=== PATIENT | female | born 1970 | race Caucasian/White ===

== ENCOUNTER → 2019-06-13 | Outpatient (CLI) | payer OTHER ==
[2019-06-13 13:26] LABS: BASO % 1.1 % (0.0-1.0); EOS % 1.1 % (0.0-3.0); HEMATOCRIT 34.4 % (36.0-47.0); HEMOGLOBIN 10.5 g/dl (12.0-15.5); LYMPH # 0.9 10^3/uL (1.5-4.5); LYMPH % 25.1 % (24.0-44.0); MEAN CORPUSCULAR HEMOGLOBIN 24.7 pg (27.0-33.0); MEAN CORPUSCULAR HGB CONC 30.5 g/dl (32.0-36.5); MEAN CORPUSCULAR VOLUME 80.9 fl (80.0-96.0); MONO # 0.5 10^3/uL (0.0-0.8); MONO % 14.5 % (0.0-5.0); NEUTROPHILS # 2.1 10^3/uL (1.8-7.7); NEUTROPHILS % 58.2 % (36.0-66.0); PLATELET COUNT, AUTOMATED 244 10^3/uL (150-450); RED BLOOD COUNT 4.25 10^6/uL (4.00-5.40); WHITE BLOOD COUNT 3.7 10^3/uL (4.0-10.0)
[2019-06-13 13:36] LABS: FREE T4 1.01 NG/DL (0.76-1.46); THYROID STIMULATING HORMONE 1.19 uIU/ML (0.358-3.740)
[2019-06-13 13:38] LABS: PROLACTIN 7.8 NG/ML
== END ==
LOC: M WUC 09:44
PROVIDERS: ATTEND Nurse Practitioner Women's Health
DX: N92.0 Excessive and frequent menstruation with regular cycle (principal)

== ENCOUNTER → 2020-07-17 | Outpatient (CLI) | payer OTHER ==
[~2020-07-17] MED LIST: FERR325T3 PO; birth control
[2020-07-17 19:29] LABS: BASO % 0.7 % (0.0-1.0); EOS # 0.1 10^3/uL (0.0-0.5); EOS % 1.4 % (0.0-3.0); HEMATOCRIT 30.4 % (36.0-47.0); HEMOGLOBIN 8.5 g/dl (12.0-15.5); LYMPH # 1.5 10^3/uL (1.5-5.0); LYMPH % 25.2 % (24.0-44.0); MEAN CORPUSCULAR HEMOGLOBIN 19.5 pg (27.0-33.0); MEAN CORPUSCULAR VOLUME 69.6 fl (80.0-96.0); MONO # 0.5 10^3/uL (0.0-0.8); MONO % 8.4 % (0.0-5.0); NEUTROPHILS # 3.7 10^3/uL (1.5-8.5); PLATELET COUNT, AUTOMATED 331 10^3/uL (150-450); RED BLOOD COUNT 4.37 10^6/uL (4.00-5.40); WHITE BLOOD COUNT 5.8 10^3/uL (4.0-10.0)
[2020-07-17 20:21] LABS: BLOOD UREA NITROGEN 15 MG/DL (7-18); CARBON DIOXIDE LEVEL 26 MEQ/L (21-32); CHLORIDE LEVEL 109 MEQ/L (98-107); FERRITIN 3 NG/ML (8-252); GLOMERULAR FILTRATION RATE > 60.0 (>58); GLUCOSE, FASTING 118 MG/DL (70-100); IRON (FE) 15 UG/DL (50-170); PERCENT SATURATION 2.3 % (13.2-45.0); POTASSIUM SERUM 4.1 MEQ/L (3.5-5.1); SODIUM LEVEL 140 MEQ/L (136-145); TOTAL IRON BINDING CAPACITY 645 UG/DL (250-450)
== END ==
LOC: M LABDRWAD 15:56
PROVIDERS: ATTEND Physician Assistant
DX: D50.9 Iron deficiency anemia, unspecified (principal)

== ENCOUNTER → 2020-07-17 | Outpatient (CLI) | payer OTHER ==
--- NOTE | 2020-08-22 07:58 | REP ---
LEFT TIBIA AND FIBULA SERIES: REASON FOR EXAMINATION: Arevalo pain. FINDINGS: There is no acute fracture or destructive osseous lesion. MTDD
== END ==
LOC: M ADAMS 15:50
PROVIDERS: ATTEND Physician Assistant
DX: M79.662 Pain in left lower leg (principal)

== ENCOUNTER → 2020-08-09 | Outpatient (CLI) | payer OTHER | LOC: M LABSMTC 10:44 | PROVIDERS: ATTEND Obstetrics & Gynecology | DX: Z01.818 Encounter for other preprocedural examination (principal); Z11.59 Encounter for screening for other viral diseases; Z20.828 Contact with and (suspected) exposure to other viral communicable diseases | CPT/HCPCS: C9803; U0003 ==

== ENCOUNTER 2020-08-14 05:50 | Day surgery (SDC) | payer OTHER ==
[~2020-08-14] VITALS: Ht 167.6 cm; Wt 68.0 kg
[2020-08-14 06:26] LABS: HEMATOCRIT 31.2 % (36.0-47.0); HEMOGLOBIN 9.1 g/dl (12.0-15.5); MEAN CORPUSCULAR HEMOGLOBIN 21.8 pg (27.0-33.0); MEAN CORPUSCULAR HGB CONC 29.2 g/dl (32.0-36.5); MEAN CORPUSCULAR VOLUME 74.6 fl (80.0-96.0); PLATELET COUNT, AUTOMATED 318 10^3/uL (150-450); RED BLOOD COUNT 4.18 10^6/uL (4.00-5.40); WHITE BLOOD COUNT 4.8 10^3/uL (4.0-10.0)
[2020-08-14] MEDS ORDERED: LR 1,000 ML IV ONE (07:00)
[2020-08-14] MEDS ORDERED: fentaNYL 100 MCG/2 ML INJECTION (J3010) As Ordered ONE (07:19)
[2020-08-14] MEDS ORDERED: propofoL 200 MG/20 ML VIAL As Ordered ONE ×2 (07:19→08:09)
[2020-08-14] MEDS ORDERED: LIDOCAINE 2% 100MG/5ML SDV (FOR ANES.) As Ordered ONE (07:19)
[2020-08-14] MEDS ORDERED: MIDAZOLAM INJ 2MG/2ML VIAL (J2250 PER 1MG) As Ordered ONE (07:19)
[2020-08-14] MEDS ORDERED: METOCLOPRAMIDE INJ 10MG/2ML VIAL (J2765 PER 1) As Ordered ONE (07:21)
[2020-08-14] MEDS ORDERED: ONDANSETRON 4MG/2ML VIAL As Ordered ONE (07:22)
[2020-08-14] MEDS ORDERED: KETOROLAC 60MG 2ML VIAL As Ordered ONE (07:22)
[2020-08-14] MEDS ORDERED: dexameTHASONE 4 MG/ML 1ML VIAL (J1100 PER 1MG) As Ordered ONE (07:23)
[2020-08-14] MEDS ORDERED: LR 1,000 ML IV SCH ×2 (08:45)
[2020-08-14] MEDS ORDERED: NORCO, ANEXSIA 5/325MG TABLET (HYDROcodone/ACETAMINOPHEN) PO PRN (08:45)
[2020-08-14] MEDS ORDERED: ONDANSETRON 4MG/2ML VIAL IV PRN (08:45)
[2020-08-14] MEDS ORDERED: fentaNYL 100 MCG/2 ML INJECTION (J3010) IV PRN (08:45)
[2020-08-14] MEDS ORDERED: oxyCODONE 5MG TAB PO PRN (08:45)
[2020-08-14] MEDS ORDERED: METOCLOPRAMIDE INJ 10MG/2ML VIAL (J2765 PER 1) IV PRN (08:45)
[2020-08-14] MEDS ORDERED: IBUPROFEN 600MG TAB PO PRN (08:45)
[2020-08-14 09:01] VITALS: BP 119/61
--- NOTE | 2020-09-01 09:00 | RO ---
DATE OF OPERATION: August 14, 2020 PREOPERATIVE DIAGNOSIS AND INDICATIONS FOR SURGERY: Bleeding and pain. POSTOPERATIVE DIAGNOSIS: Bleeding and pain. PROCEDURE: * Dilatation and curettage. * Hysteroscopy. * NovaSure ablation. SURGEON: Mignon Echeverria MD TEST ENG: None. ANESTHESIA: LMA. BRIEF DESCRIPTION OF PROCEDURE AND FINDINGS: Ptaricia was brought to the operating room where sufficient LMA anesthesia was induced. She was prepped, draped, and positioned in the usual sterile fashion. The cervix was sounded to 3.5. The uterus sounded to 8 giving a cavity length of 4.5. Subsequently, we had width of 4.7, but at this point, we only had length. We then dilated the cervix enough to allow introduction of the hysteroscope, which was used to visualize the endometrial cavity. As noted in the pictures, there was a tiny polyp and then a fairly broad-based fibroid posteriorly, but flatly attached. So, I felt that we would have a good application of the NovaSure despite this, and we were able to see normal tubal ostia and no other significant-appearing lesion. Curettage was carried out. Then, the NovaSure ablative device was placed, again, length set at 4.5, width set at 4.7 after measuring the cavity. Then, an uncomplicated NovaSure ablation was undertaken. The procedure was subsequently ended. ESTIMATED BLOOD LOSS FOR THE PROCEDURE: About 3 mL. FLUID REPLACEMENT: Crystalloid. COMPLICATIONS: None. CONDITION AND DISPOSITION: Patricia tolerated the procedure well and was recovering in the recovery room in good condition. TIGRE
== END 2020-08-14 09:27 | disposition home or self-care (01) ==
LOC: M SDC 05:50
PROVIDERS: ATTEND Obstetrics & Gynecology
DX: R10.2 Pelvic and perineal pain (principal); N93.9 Abnormal uterine and vaginal bleeding, unspecified; D64.9 Anemia, unspecified; Z79.899 Other long term (current) drug therapy
CPT/HCPCS: 36415; 58563; 81025; 85027; 88305; J1100; J1885; J2250; J2405; J2765; J3010

== ENCOUNTER → 2021-04-01 | Outpatient (CLI) | payer OTHER ==
[2021-04-01 09:32] LABS: BASO # 0.1 10^3/uL (0.0-0.2); BASO % 1.1 % (0.0-1.0); EOS # 0.1 10^3/uL (0.0-0.5); EOS % 2.1 % (0.0-3.0); HEMATOCRIT 42.2 % (36.0-47.0); HEMOGLOBIN 13.9 g/dl (12.0-15.5); LYMPH # 1.4 10^3/uL (1.5-5.0); LYMPH % 28.8 % (24.0-44.0); MEAN CORPUSCULAR HEMOGLOBIN 30.8 pg (27.0-33.0); MEAN CORPUSCULAR HGB CONC 32.9 g/dl (32.0-36.5); MEAN CORPUSCULAR VOLUME 93.6 fl (80.0-96.0); MONO # 0.4 10^3/uL (0.0-0.8); MONO % 8.6 % (2.0-8.0); NEUTROPHILS # 2.8 10^3/uL (1.5-8.5); PLATELET COUNT, AUTOMATED 204 10^3/uL (150-450); RED BLOOD COUNT 4.51 10^6/uL (4.00-5.40); WHITE BLOOD COUNT 4.8 10^3/uL (4.0-10.0)
[2021-04-01 10:34] LABS: ALBUMIN 4.1 GM/DL (3.2-5.2); ALT/SGPT 16 U/L (12-78); BILIRUBIN,TOTAL 0.4 MG/DL (0.2-1.0); BLOOD UREA NITROGEN 13 MG/DL (7-18); CALCIUM LEVEL 9.6 MG/DL (8.5-10.1); CARBON DIOXIDE LEVEL 28 MEQ/L (21-32); CHLORIDE LEVEL 107 MEQ/L (98-107); CREATININE FOR GFR 0.74 MG/DL (0.55-1.30); FERRITIN 57 NG/ML (8-252); FOLATE 8.6 NG/ML; FREE T4 0.93 NG/DL (0.76-1.46); GLOMERULAR FILTRATION RATE > 60.0 (>51); GLUCOSE, FASTING 102 MG/DL (70-100); IRON (FE) 94 UG/DL (50-170); PERCENT SATURATION 26.6 % (13.2-45.0); POTASSIUM SERUM 3.7 MEQ/L (3.5-5.1); SODIUM LEVEL 141 MEQ/L (136-145); TOTAL IRON BINDING CAPACITY 354 UG/DL (250-450); TOTAL PROTEIN 7.1 GM/DL (6.4-8.2); VITAMIN B12 LEVEL 408 PG/ML
[2021-04-02 23:11] LABS: ANA (HEP2) Positive (.)
== END ==
LOC: M WUC 08:09
PROVIDERS: ATTEND Physician Assistant
DX: D50.0 Iron deficiency anemia secondary to blood loss (chronic) (principal)

== ENCOUNTER → 2021-04-23 | Outpatient (CLI) | payer OTHER ==
--- NOTE | 2021-04-23 15:54 | REPVR ---
PROCEDURE INFORMATION: Exam: MR Head Without and With Contrast Exam date and time: 04/23/2021 2:01 PM Age: 50 years old Clinical indication: Visual disturbance; Patient HX: PT states she sees "white floating objects" in brightly lit areas. Nki no priors TECHNIQUE: Imaging protocol: MR of the head without and with intravenous contrast. Contrast material: PROHANCE; Contrast volume: 13 ml; Contrast route: INTRAVENOUS (IV); COMPARISON: No relevant prior studies available. FINDINGS: Brain: There are 2 small hyperintense foci in the subcortical white matter on FLAIR images. There is no evidence of infarct. DWI demonstrates no acute infarct. Gradient echo images demonstrate no evidence of hemorrhage. There is no extra-axial collection. There is no mass or abnormal enhancement. There are no abnormal flow voids. Cerebral ventricles: There is no hydrocephalus. Bones/joints: Unremarkable. Paranasal sinuses: Normal as visualized. No acute sinusitis. Mastoid air cells: Normal as visualized. No mastoid effusion. Orbital cavity: Unremarkable. Soft tissues: Unremarkable. IMPRESSION: 1. Minimal punctate hyperintense foci in the subcortical white matter. This is nonspecific and could represent minimal foci of microvascular or demyelinating disease. Most often such minimal foci are idiopathic with no clinical correlate. 2. No acute intracranial lesion or injury. Electronically signed by: Lamine Cuevas On 04/23/2021 15:53:40 PM
== END ==
LOC: M PLARAD 12:24
PROVIDERS: ATTEND Physician Assistant
DX: H53.9 Unspecified visual disturbance (principal)

== ENCOUNTER → 2021-07-16 | Outpatient (REF) | payer OTHER ==
[2021-07-17 13:46] LABS: BASO % 0.6 % (0.0-1.0); EOS # 0.1 10^3/uL (0.0-0.5); EOS % 1.9 % (0.0-3.0); HEMATOCRIT 41.3 % (36.0-47.0); HEMOGLOBIN 13.5 g/dl (12.0-15.5); LYMPH # 1.3 10^3/uL (1.5-5.0); LYMPH % 24.7 % (24.0-44.0); MEAN CORPUSCULAR HEMOGLOBIN 30.9 pg (27.0-33.0); MEAN CORPUSCULAR HGB CONC 32.7 g/dl (32.0-36.5); MEAN CORPUSCULAR VOLUME 94.5 fl (80.0-96.0); MONO # 0.5 10^3/uL (0.0-0.8); MONO % 9.1 % (2.0-8.0); NEUTROPHILS # 3.4 10^3/uL (1.5-8.5); NEUTROPHILS % 63.5 % (36.0-66.0); PLATELET COUNT, AUTOMATED 218 10^3/uL (150-450); RED BLOOD COUNT 4.37 10^6/uL (4.00-5.40); WHITE BLOOD COUNT 5.3 10^3/uL (4.0-10.0)
[2021-07-17 13:48] LABS: APPEARANCE, URINE CLEAR (CLEAR); BACTERIA, URINE AUTO NEGATIVE (NEGATIVE); BILIRUBIN, URINE AUTO NEGATIVE (NEGATIVE); BLOOD, URINE BLOOD 1+ (NEGATIVE); COLOR, URINE STRAW (YELLOW); GLUCOSE, URINE (UA) AUTO NEGATIVE (NEGATIVE); KETONE, URINE AUTO NEGATIVE (NEGATIVE); LEUKOCYTE ESTERASE, URINE AUTO NEGATIVE (NEGATIVE); MUCUS, URINE SMALL (NEGATIVE); NITRITE, URINE AUTO NEGATIVE (NEGATIVE); PROTEIN, URINE AUTO NEGATIVE (NEGATIVE); RBC, URINE AUTO 0 /HPF (0-3); SPECIFIC GRAVITY URINE AUTO 1.013 (1.002-1.035); SQUAMOUS EPITHELIAL CELL UR AU 0 /HPF (0-6); UROBILINOGEN, URINE AUTO 0.2 mg/dL (0.0-2.0); WBC, URINE AUTO 0 /HPF (0-3)
[2021-07-17 14:40] LABS: PERCENT SATURATION 24.4 % (13.2-45.0)
== END ==
LOC: M SFHCADAM 15:32
PROVIDERS: ATTEND Physician Assistant
DX: D50.0 Iron deficiency anemia secondary to blood loss (chronic) (principal); R76.8 Other specified abnormal immunological findings in serum

== ENCOUNTER → 2021-09-07 | Outpatient (CLI) | payer OTHER ==
[2021-09-07 15:10] LABS: BASO % 0.7 % (0.0-1.0); EOS # 0.1 10^3/uL (0.0-0.5); EOS % 3.2 % (0.0-3.0); HEMATOCRIT 44.3 % (36.0-47.0); HEMOGLOBIN 14.4 g/dl (12.0-15.5); LYMPH # 1.4 10^3/uL (1.5-5.0); LYMPH % 33.3 % (24.0-44.0); MEAN CORPUSCULAR HGB CONC 32.5 g/dl (32.0-36.5); MEAN CORPUSCULAR VOLUME 95.3 fl (80.0-96.0); MONO # 0.3 10^3/uL (0.0-0.8); NEUTROPHILS # 2.3 10^3/uL (1.5-8.5); NEUTROPHILS % 55.6 % (36.0-66.0); PLATELET COUNT, AUTOMATED 228 10^3/uL (150-450); RED BLOOD COUNT 4.65 10^6/uL (4.00-5.40); WHITE BLOOD COUNT 4.1 10^3/uL (4.0-10.0)
[2021-09-07 15:35] LABS: ERYTHROCYTE SEDIMENTATION RATE 2 mm/hr (0-30)
[2021-09-07 15:55] LABS: ALBUMIN 4.1 GM/DL (3.2-5.2); ALT/SGPT 17 U/L (12-78); BILIRUBIN,TOTAL 0.3 MG/DL (0.2-1.0); BLOOD UREA NITROGEN 13 MG/DL (7-18); CALCIUM LEVEL 8.7 MG/DL (8.5-10.1); CARBON DIOXIDE LEVEL 29 MEQ/L (21-32); CHLORIDE LEVEL 106 MEQ/L (98-107); CREATININE FOR GFR 0.97 MG/DL (0.55-1.30); FOLATE 9.9 NG/ML; GLOMERULAR FILTRATION RATE > 60.0 (>51); GLUCOSE, FASTING 89 MG/DL (70-100); HEPATITIS B SURFACE ANTIBODY NEGATIVE (POSITIVE); POTASSIUM SERUM 3.9 MEQ/L (3.5-5.1); RHEUMATOID FACTOR QUANT < 10.0 IU/ML (<15.0); SODIUM LEVEL 140 MEQ/L (136-145); TOTAL PROTEIN 7.4 GM/DL (6.4-8.2); VITAMIN B12 LEVEL 530 PG/ML
[2021-09-07 16:26] LABS: HEMOGLOBIN A1c 5.3 %
[2021-09-07 16:28] LABS: HEPATITIS C VIRUS ABY INDEX < 0.0 INDEX (<0.8)
== END ==
LOC: M WUC 09:23
PROVIDERS: ATTEND Psychiatry & Neurology Neurology
DX: G62.9 Polyneuropathy, unspecified (principal)

== ENCOUNTER → 2021-09-14 | Outpatient (CLI) | payer OTHER | LOC: M LABSMTC 10:48 | PROVIDERS: ATTEND Anesthesiology | DX: Z01.812 Encounter for preprocedural laboratory examination (principal); Z20.822 Contact with and (suspected) exposure to COVID-19 ==

== ENCOUNTER 2021-09-18 06:42 | Day surgery (SDC) | payer OTHER ==
[~2021-09-18] VITALS: Ht 167.6 cm; Wt 64.0 kg
[~2021-09-18 06:42] MED LIST changes: +LIDOCAINE 2% 100MG/5ML SDV (FOR ANES.) As Ordered ONE; +NS 1,000 ML IV ONE; +propofoL 200 MG/20 ML VIAL As Ordered ONE
--- OUTSIDE RECORDS SUMMARY | 2021-09-18 06:44 | CCD | Continuity of Care Document ---
Author Author Patricia RAY RPA-C Organization Unknown Address [address] [place] [address], [address] [place] [address] Phone [phone] Care Team Providers Care Weasand Trimmer Name Role Phone Savanah Kellogg P.A.-C. AUTM [phone] Problems Description No Active Problems Social History Type Date Description Comments Sex Unknown ETOH Use 5 A Week Tobacco Use Start: Unknown Non Smoker Allergies, Adverse Reactions, Alerts Description No Known Drug Allergies Medications Active Medications SIG Qnty Indications Ordering Provide r Date Sutab [id number] Tablets take tablets as directed per doctor for bowel prep. 1kit Z12.11 Fabian hamilton MD 07/07/[address] take 4 tabs by mouth prior to procedure per instructions. 4tabs Z12.11 Fabian Landa MD 07/07/2021 Aspirin Ec Low Dose 81mg Tablets DR Daily Unknown Immunizations Description No Information Available Vital Signs Date Vital Result Comment 07/07/2021 10:18am BP Systolic 102 mmHg BP Diastolic 72 mmHg Height 66 inches 5'6" Weight 145.00 lb BMI (Body Mass Index) 23.4 kg/m2 [place] Body Weight 130 lb Weight 65.772 kg BSA (Body Surface Area) 1.74 m2 Results Description No Information Available Procedures Description No Information Available Medical Devices Description No Information Available Encounters Description No Information Available Assessments Date Code Description Provider 07/07/2021 Z12.11 Encounter for screening for sandor gnant neoplasm of colon LUCIANA Ross Plan of Treatment 07/07/2021 - LUCIANA Ross* Z12.11 Encounter for screening for malignant neoplasm of colon * * New Medication:* Sutab [id number] mg * Dulcolax 5 mg * New Orders:* Colonoscopy, Ordered: 07/07/21 * Comments:* Will arrange for colonoscopy. Reviewed risks and benefits of the procedure, as well as other options, with the patient. Bowel prep procedure was discussed with patient, as well as risks and side effects associated with the bowel prep. Patient verbalized understanding of all of the above and is in agreement to proceed. Patient will seek medical attention for any acute changes. Will monitor. * Follow up:* As scheduled, sooner if needed. Functional Status Description No Information Available Mental Status Description No Information Available Referrals Refer to Reason for Referral Status Appt Date Elan Doty M.D. COLO SCREENING Scheduled 04/29 [facility]-GI 6 [facility], [address] [address] [phone]
--- OUTSIDE RECORDS SUMMARY | 2021-09-18 06:44 | CCD | Continuity of Care Document ---
Author Author Patricia MIMS Organization Unknown Address [address] [place] [address] Phone [phone] Care Team Providers Care Mainframe Programmer Analyst Name Role Phone Savanah Kellogg PA-C AUTM [phone] Problems Description No Information Available Social History Type Date Description Comments Sex Unknown Allergies, Adverse Reactions, Alerts Description No Information Available Medications Description No Information Available Immunizations Description No Information Available Vital Signs Description No Information Available Results Description No Information Available Procedures Date Code Description Status 07/08/2021 24560 Magnetic Resonance Angiography N papo W/O Contrast Materials Completed 07/08/2021 60099 Magnetic Resonance Angiography N papo W/O Contrast Materials Completed 07/08/2021 84383 Magnetic Resonance Angiogtaphy H ead W/O Contrast Material(S) Completed 07/08/2021 03265 Magnetic Resonance Angiogtaphy H ead W/O Contrast Material(S) Completed 07/03/2021 40251 Office/Outpatient New Moderate M DM 45-59 Minutes Completed Medical Devices Description No Information Available Encounters Type Date Location Provider Dx Diagnosis Office Visit 07/03/2021 1:30p [place] office - [place] M.D. G37.9 Demyelinating disease of central nervous system, unspecified G45.9 Transient cerebral ischemic attack, unspecified H53.8 Other visual disturbances Assessments Date Code Description Provider 07/08/2021 R42 Dizziness and giddiness Jonas De Paz M.D. 07/08/2021 R42 Dizziness and giddiness MRI 07/03/2021 G37.9 Demyelinating disease of central nervous system, unspecified Debra Hoang M.D. 07/03/2021 G45.9 Transient cerebral ischemic raúl ck, unspecified Debra Hoang M.D. 07/03/2021 H53.8 Other visual disturbances Debra Hoang M.D. Plan of Treatment Future Appointment(s):* 07/28/2021 3:45 pm - Debra Hoang M.D. at [facility] * 08/14/2021 10:45 am - Ans/VS at [facility] Functional Status Description No Information Available Mental Status Description No Information Available Referrals Refer to Reason for Referral Status Appt Date Created
--- OUTSIDE RECORDS SUMMARY | 2021-09-18 06:44 | CCD | Continuity of Care Document ---
Author Author Patricia MIMS Organization Unknown Address [address] [place] [address] Phone [phone] Care Team Providers Care Bilingual Speech Therapist Name Role Phone Savanah Kellogg PA-C AUTM [phone] Problems Description No Information Available Social History Type Date Description Comments Sex Unknown Allergies, Adverse Reactions, Alerts Description No Information Available Medications Description No Information Available Immunizations Description No Information Available Vital Signs Description No Information Available Results Description No Information Available Procedures Date Code Description Status 07/03/2021 87173 Office/Outpatient New Moderate M DM 45-59 Minutes Completed Medical Devices Description No Information Available Encounters Type Date Location Provider Dx Diagnosis Office Visit 07/03/2021 1:30p [facility] office - [place] Debra Hoang M.D. G37.9 Demyelinating disease of central nervous system, unspecified G45.9 Transient cerebral ischemic attack, unspecified H53.8 Other visual disturbances Assessments Date Code Description Provider 07/03/2021 G37.9 Demyelinating disease of central nervous system, unspecified Debra Hoang M.D. 07/03/2021 G45.9 Transient cerebral ischemic raúl ck, unspecified Debra Hoang M.D. 07/03/2021 H53.8 Other visual disturbances Debra Hoang M.D. Plan of Treatment Future Appointment(s):* 07/28/2021 3:45 pm - Debra Hoang M.D. at Main office - [place] * 08/14/2021 10:45 am - Ans/VS at [facility] office [facility] Functional Status Description No Information Available Mental Status Description No Information Available Referrals Description No Information Available
--- OUTSIDE RECORDS SUMMARY | 2021-09-18 06:44 | CCD | Continuity of Care Document ---
Author Author Patricia HOANG M.D. Organization Unknown Address [address] [place] [address] Phone [phone] Care Team Providers Care Bulldogger Name Role Phone Savanah Kellogg PA-C AUTM [phone] Problems Description No Information Available Social History Type Date Description Comments Sex Unknown Allergies, Adverse Reactions, Alerts Description No Information Available Medications Description No Information Available Immunizations Description No Information Available Vital Signs Description No Information Available Results Description No Information Available Procedures Date Code Description Status 07/03/2021 15937 Office/Outpatient New Moderate M DM 45-59 Minutes Completed Medical Devices Description No Information Available Encounters Type Date Location Provider Dx Diagnosis Office Visit 07/03/2021 1:30p [facility] [place] Debra Hoang M.D. G37.9 Demyelinating disease of [...] 3:45 pm - Debra Hoang M.D. at [facility] * 08/14/2021 10:45 am - Ans/VS at [facility] Functional Status Description No Information Available Mental Status Description No Information Available Referrals Description No Information Available
--- OUTSIDE RECORDS SUMMARY | 2021-09-18 06:44 | CCD | Continuity of Care Document ---
Author Author Patricia RAY RPA-C Organization Unknown Address [address] [place] [address], [address] [place] [address] Phone [phone] Care Team Providers Care Rn Tele Name Role Phone Savanah Kellogg P.A.-C. AUTM Problems Description No Active Problems Social History Type Date Description Comments Sex Unknown ETOH Use 5 A Week Tobacco Use Start: Unknown Non Smoker Allergies, Adverse Reactions, Alerts Description No Known Drug Allergies Medications Active Medications SIG Qnty Indications Ordering Provide r Date Sutab [id number] Tablets take tablets as directed per doctor [...] lb BMI (Body Mass Index) 23.4 kg/m2 [place] Body Weight 130 lb Weight 65.772 kg [...] of colon * * New Medication:* Sutab 6776-529-224 mg * Dulcolax 5 mg * New [...] Elan Doty M.D. COLO SCREENING Scheduled 04/29 [facility]-GI 6 [facility], [address] [address] [phone]
--- OUTSIDE RECORDS SUMMARY | 2021-09-18 06:44 | CCD ---
Continuity of Care Document (CCD) Created on: 08/20/2021 Patricia Martel External Reference #: [id number] : [id number] Sex: Female Author Author Patricia ECHEVERRIA Organization Unknown Address [address] [place] [address] Phone [phone] Problems Active Problems Provider Date Excessive and frequent menstruation Sandy Villafana WHNP Ons et: 06/12/2019 Social History Type Date Description Comments Sex Unknown Tobacco Use Start: Unknown Never Smoked Cigarettes ETOH Use Non-Smoker, Occasional Drinker, Non-Drug User Tobacco Use Start: Unknown Patient has never smoked Smoking Status Reviewed: 08/10/21 Patient has never smoked Allergies, Adverse Reactions, Alerts Description No Known Drug Allergies Medications Active Medications SIG Qnty Indications Ordering Provide r Date Aspirin Adult Low Dose 81mg Tablet s DR 1 by mouth every day Unknown Immunizations Description No Information Available Vital Signs Date Vital Result Comment 08/10/2021 3:01pm BP Systolic 104 mmHg BP Diastolic 54 mmHg Height 65.75 inches 5'5.75" Weight 145.00 lb BMI (Body Mass Index) 23.6 kg/m2 BSA (Body Surface Area) 1.74 m2 08/29/2020 8:37am BP Systolic 112 mmHg BP Diastolic 62 mmHg Results Test Acquired Date Facility Test Result H/L Range Note Thinprep W/Reflex HR HPV If Asc-US 08/10/2021 Propa th TP Reflex HPV ASCUS Normal Normal 1 TP Reflex HPV ASCUS SEE IMAGE 1 SPECIME N PART A. Cervical, Endocervical, ThinPrep Pap (Sustainability Consultant) CYTOLOGY HX-------- Date of Last Menstrual Period: 07/17/21 Other Information:Previous Normal Pap: 07/30/20 FINAL DIAGNOSIS---- INTERPRETATION: Negative for Intraepithelial Lesion or Malignancy. SPECIMEN ADEQUACY:Satisfactory for evaluation. Endocervical/transformation zone component present. Procedures Date Code Description Status 08/10/2021 77492 Preventive Visit Est 40-64 Yrs C ompleted 08/12/2020 [id number] Mammogram Completed 03/05/2019 [id number] Mammogram Completed 01/12/2018 [id number] Mammogram Completed 07/08/2015 [id number] Mammogram Completed Medical Devices Description No Information Available Encounters Type Date Location Provider Dx Diagnosis Office Visit 08/10/2021 3:00p [facility] city dispatcher Mignon Echeverria MD Z0 1.419 Encntr for assembler sandal parts exam (general) (routine) w/o abn findings Z12.4 Encounter for screening for malignant neoplasm of cervix Z12.39 Encounter for oth screening for malignant neoplasm of breast Assessments Date Code Description Provider 08/10/2021 Z01.419 Encounter for gyneco logical examination (general) (routine) without abnormal findings Mignon Echeverria MD 08/10/2021 Z12.4 Encounter for screening for sandor gnant neoplasm of cervix Mignon Echeverria MD 08/10/2021 Z12.39 Encounter for other screening for malignant neoplasm of breast Mignon Echeverria MD Plan of Treatment Future Appointment(s):* 08/20/2022 2:30 pm - Mignon Echeverria MD at [facility] city dispatcher 08/10/2021 - Mignon Echeverria MD* Z01.419 Encounter for gynecological examination (general) (routine) without abnormal findings * Z12.4 Encounter for screening for malignant neoplasm of cervix * Z12.39 Encounter for other screening for malignant neoplasm of breast Functional Status Description No Information Available Mental Status Description No Information Available Referrals Description No Information Available
--- OUTSIDE RECORDS SUMMARY | 2021-09-18 06:44 | CCD | Continuity of Care Document ---
Author Author Patricia HOANG M.D. Organization Unknown Address [address] [place] [address] Phone [phone] Care Team Providers Care Assistant To The Ceo Name Role Phone Savanah Kellogg PA-C AUTM [phone] Problems Description No Information Available Social History Type Date Description Comments Sex Unknown Allergies and adverse reactions Description No Information Available Medications Description No Information Available Immunizations Description No Information Available Vital Signs Description No Information Available Results Description No Information Available Procedures Date Code Description Status 08/27/2021 12529 Office/Outpatient Established Mo d MDM 30-39 Min Completed 07/08/2021 56890 Magnetic Resonance Angiography N papo W/O Contrast Materials Completed 07/08/2021 26743 Magnetic Resonance Angiography N papo W/O Contrast Materials Completed 07/08/2021 80141 Magnetic Resonance Angiography N papo W/O Contrast Materials Completed 07/08/2021 87971 Magnetic Resonance Angiogtaphy H ead W/O Contrast Material(S) Completed 07/08/2021 29958 Magnetic Resonance Angiogtaphy H ead W/O Contrast Material(S) Completed 07/08/2021 64193 Magnetic Resonance Angiogtaphy H ead W/O Contrast Material(S) Completed 07/03/2021 99886 Office/Outpatient New Moderate M DM 45-59 Minutes Completed Medical Devices Description No Information Available Encounters Type Date Location Provider Dx Diagnosis Office Visit 08/27/2021 10:30a [place] M.[place] R42 Dizziness and giddiness R20.2 Paresthesia of skin H53.8 Other visual disturbances Office Visit 07/03/2021 1:30p [place] M.[place]. G37.9 Demyelinating disease of central nervous system, unspecified G45.9 Transient cerebral ischemic attack, unspecified H53.8 Other visual disturbances Assessments Date Code Description Provider 08/27/2021 R42 Dizziness and giddiness Debra rodriguez M.D. 08/27/2021 R20.2 Paresthesia of skin Debra Hoang M.D. 08/27/2021 H53.8 Other visual disturbances Debra Hoang M.D. 07/08/2021 R42 Dizziness and giddiness Manny macias MD 07/08/2021 R42 Dizziness and giddiness Jonas De Paz M.D. 07/08/2021 R42 Dizziness and giddiness MRI 07/03/2021 G37.9 Demyelinating disease of central nervous system, unspecified Debra Hoang M.D. 07/03/2021 G45.9 Transient cerebral ischemic raúl ck, unspecified Debra Hoang M.D. 07/03/2021 H53.8 Other visual disturbances Debra Hoang M.D. Plan of Treatment Future Appointment(s):* 10/30/2021 9:30 am - Debra Hoang M.D. at Main office - [place] Functional Status Description No Information Available Mental Status Description No Information Available Referrals Refer to Reason for Referral Status Appt Date Created
--- OUTSIDE RECORDS SUMMARY | 2021-09-18 06:44 | CCD ---
Continuity of Care Document (CCD) Created on: 08/14/2021 GermankeyPatricia garcia External Reference #: [id number] : [id number] Sex: Female Author Author Ramírez/Patricia SAGE Organization Unknown Address [address] [place] [address] Phone [phone] Care Team Providers Care Pedicurist Name Role Phone Savanah Kellogg PA-C AUTM [phone] Problems Description No Information Available Social History Type Date Description Comments Sex Unknown Allergies, Adverse Reactions, Alerts Description No Information Available Medications Description No Information Available Immunizations Description No Information Available Vital Signs Description No Information Available Results Description No Information Available Procedures Date Code Description Status 07/08/2021 58327 Magnetic Resonance Angiography N papo W/O Contrast Materials Completed 07/08/2021 61582 Magnetic Resonance Angiography N papo W/O Contrast Materials Completed 07/08/2021 91042 Magnetic Resonance Angiography N papo W/O Contrast Materials Completed 07/08/2021 29301 Magnetic Resonance Angiogtaphy H ead W/O Contrast Material(S) Completed 07/08/2021 00310 Magnetic Resonance Angiogtaphy H ead W/O Contrast Material(S) Completed 07/08/2021 76683 Magnetic Resonance Angiogtaphy H ead W/O Contrast Material(S) Completed 07/03/2021 46759 Office/Outpatient New Moderate M DM 45-59 Minutes Completed Medical Devices Description No Information Available Encounters Type Date Location Provider Dx Diagnosis Office Visit 07/03/2021 1:30p [place] M.[place]. G37.9 Demyelinating disease of central nervous system, unspecified G45.9 Transient cerebral ischemic attack, unspecified H53.8 Other visual disturbances Assessments Date Code Description Provider 07/08/2021 R42 Dizziness and giddiness Manny macias MD 07/08/2021 R42 Dizziness and jasbir De Paz M.D. 07/08/2021 R42 Dizziness and giddiness MRI 07/03/2021 G37.9 Demyelinating disease of central nervous system, unspecified Debra Hoang M.D. 07/03/2021 G45.9 Transient cerebral ischemic raúl ck, unspecified Debra Hoang M.D. 07/03/2021 H53.8 Other visual disturbances Debra Hoang M.D. Plan of Treatment Future Appointment(s):* 08/27/2021 10:30 am - Debra Hoang M.D. at Main office - [place] Functional Status Description No Information Available Mental Status Description No Information Available Referrals Refer to Reason for Referral Status Appt Date Created
--- OUTSIDE RECORDS SUMMARY | 2021-09-18 06:44 | CCD | Continuity of Care Document ---
Author Author Patricia PHAM M.D. Organization Unknown Address [address] [place] [address] Phone [phone] Care Team Providers Care Drill Operator Pneumatic Name Role Phone Savanah Kellogg PA-C [facility] [phone] Problems Description No Information Available Social History Type Date Description Comments Sex Unknown Allergies, Adverse Reactions, Alerts Description No Information Available Medications Description No Information Available Immunizations Description No Information Available Vital Signs Description No Information Available Results Description No Information Available Procedures Description No Information Available Medical Devices Description No Information Available Encounters Description No Information Available Assessments Description No Information Available Plan of Treatment No Information Available Functional Status Description No Information Available Mental Status Description No Information Available Referrals Description No Information Available
--- OUTSIDE RECORDS SUMMARY | 2021-09-18 06:44 | CCD | Continuity of Care Document ---
Author Author Patricia HOANG M.D. Organization Unknown Address [address] [place] [address] Phone [phone] Care Team Providers Care Director Of Rooms Name Role Phone Savanah Kellogg PA-C AUTM [phone] Problems Description No Information Available Social History Type Date Description Comments Sex Unknown Allergies, Adverse Reactions, Alerts Description No Information Available Medications Description No Information Available Immunizations Description No Information Available Vital Signs Description No Information Available Results Description No Information Available Procedures Date Code Description Status 07/08/2021 68480 Magnetic Resonance Angiography N papo W/O Contrast Materials Completed 07/08/2021 49241 Magnetic Resonance Angiography N papo W/O Contrast Materials Completed 07/08/2021 97737 Magnetic Resonance Angiography N papo W/O Contrast Materials Completed 07/08/2021 84187 Magnetic Resonance Angiogtaphy H ead W/O Contrast Material(S) Completed 07/08/2021 72436 Magnetic Resonance Angiogtaphy H ead W/O Contrast Material(S) Completed 07/08/2021 75862 Magnetic Resonance Angiogtaphy H ead W/O Contrast Material(S) Completed 07/03/2021 85859 Office/Outpatient New Moderate M DM 45-59 Minutes Completed Medical Devices Description No Information Available Encounters Type Date Location Provider Dx Diagnosis Office Visit 07/03/2021 1:30p [place] M.D. G37.9 Demyelinating disease of central nervous system, unspecified G45.9 Transient cerebral ischemic attack, unspecified H53.8 Other visual disturbances Assessments Date Code Description Provider 07/08/2021 R42 Dizziness and giddiness Manny macias MD 07/08/2021 R42 Dizziness and giddiness Jonas La tif, M.D. 07/08/2021 R42 Dizziness and giddiness MRI 07/03/2021 G37.9 Demyelinating disease of central nervous system, unspecified Debra oHang M.D. 07/03/2021 G45.9 Transient cerebral ischemic raúl ck, unspecified Debra Hoang M.D. 07/03/2021 H53.8 Other visual disturbances Debra Hoang M.D. Plan of Treatment No Information Available Functional Status Description No Information Available Mental Status Description No Information Available Referrals Refer to Reason for Referral Status Appt Date Created
--- OUTSIDE RECORDS SUMMARY | 2021-09-18 06:44 | CCD ---
Author Author [facility] Organization [facility] Address Unknown Phone Unavailable Care Team Providers Care Service Counselor Name Role Phone Savanah Kellogg Unavailable PROBLEMS Type Condition ICD9-CM Code ROM03-WR Code Onset Dates Condition S tatus W/U Status Risk SNOMED Code Notes Problem Visual disturbance H53.9 Active confirmed 6 6155409 Problem Iron deficiency anemia due to chronic blood loss D 50.0 Active confirmed 989502433 Problem Vitamin d deficiency 268.9 Active confirmed 19514896 Problem YADIRA positive R76.8 Active confirmed 3473130 01 Problem Colon cancer screening Z12.11 Active confirmed 735367397 ALLERGIES No Known Allergies ENCOUNTERS from 1970 to 2021-07-24 Encounter Location Date Provider Diagnosis [address] [place] [address] Jun, Savanah Kellogg Iron deficiency anemia due to chronic bl ood loss D50.0 ; YADIRA positive R76.8 and Visual disturbance H53.9 IMMUNIZATIONS Vaccine Route Administration Date Status COVID-19 dose #2 given elsewhere Unspecified Unknown Jan 10, 2021 Administered COVID-19 dose #1 given elsewhere Unspecified Unknown Dec 20, 2020 Administered SOCIAL HISTORY Tobacco Use: Social History Observation Description Date Details (start date - stop date) Never Smoker Sex Assigned At : Social History Observation Description Sex Assigned At Unknown Audit Question Answer Notes Total Score: 2 Interpretation: Alcohol Education Sexual Hx: Question Answer Notes Had sex in the last 12 months (vaginal, oral, or anal)? Yes LMP: 10/19/19 Have you ever had an STD? No with Men only Use protection? No Drug and Alcohol Question Answer Notes Total Score: 0 Interpretation: No problems reported Tobacco Use: Question Answer Notes Are you a: never smoker never smoker REASON FOR REFERRAL No Information VITAL SIGNS Weight 147.8 lbs Jun, Height 66.5 in Jun, BMI 23.50 kg/m2 Jun, Heart Rate 121 /min Jun, Respiratory Rate 18 /min Jun, Temperature 98 degrees Fahrenheit Jun, Oximetry 99 Jun, Blood pressure systolic 120 mm Hg Jun, Blood pressure diastolic 70 mm Hg Jun, MEDICATIONS Medication SIG (Take, Route, Frequency, Duration) Notes Start Da te End Date Status Aspirin 81 MG 1 tablet Orally Once a day for 30 day(s) Active PROCEDURES No Information RESULTS Component Value Reference Range CBC with Differential Reviewed date:07/17/2021 16:55:27 Interpretation: Performing Lab:[facility] [address] [place] [id number] , ,[place] [address] WHITE BLOOD COUNT 5.3 4.0-10.0 RED BLOOD COUNT 4.37 4.00-5.40 HEMOGLOBIN 13.5 12.0-15.5 HEMATOCRIT 41.3 36.0-47.0 MEAN CORPUSCULAR VOLUME 94.5 80.0-96.0 MEAN CORPUSCULAR HEMOGLOBIN 30.9 27.0-33.0 MEAN CORPUSCULAR HGB CONC 32.7 32.0-36.5 RED CELL DISTRIBUTION WIDTH 12.3 11.5-14.5 PLATELET COUNT, AUTOMATED 218 150-450 NEUTROPHILS % 63.5 36.0-66.0 LYMPH % 24.7 24.0-44.0 MONO % 9.1 2.0-8.0 EOS % 1.9 0.0-3.0 BASO % 0.6 0.0-1.0 NEUTROPHILS # 3.4 1.5-8.5 LYMPH # 1.3 1.5-5.0 MONO # 0.5 0.0-0.8 EOS # 0.1 0.0-0.5 BASO # 0.0 0.0-0.2 FERRITIN Reviewed date:07/17/2021 16:55:56 Interpretation: Performing Lab:[facility] [address] [place] [id number] , ,[place] [address] FERRITIN 48 8-252 TOTAL IRON BINDING CAPACIT Reviewed date:07/17/2021 16:55:31 Interpretation: Performing Lab:[facility] [address] [facility] [address] , ,[place] [address] IRON (FE) 86 50-170 TOTAL IRON BINDING CAPACITY 353 250-450 PERCENT SATURATION 24.4 13.2-45.0 UA URINALYSIS Reviewed date:07/17/2021 16:56:29 Interpretation: Performing Lab:[facility], [facility] [address] [facility] [address] , ,[facility] REASON FOR VISIT 3 month follow up, labs not done MEDICAL (GENERAL) HISTORY Type Description Date Medical History Rosacea Medical History + YADIRA (high titier, 1:320) h omogeneous pattern 11/11; no clinical dx of SLE - Has appt to establish with Rheumatology in August Medical History Visual Disturbances - Follow ing with Neurology MRI/MRA performed Medical History Iron Def Anemia - felt to be related to heavy menses - Medical History Heavy Menses - s/p Uterine ablation 08/17 20 Surgical History minor skin cancer surgeries 2001 and 7 Surgical History uterin ablasion 07/2020 Goals Section No Information Health Concerns No Information MEDICAL EQUIPMENT No Information MENTAL STATUS No Information FUNCTIONAL STATUS No Information ASSESSMENTS Encounter Date Diagnosis Assessment Notes Treatment Notes Treatm ent Clinical Notes Jun, Iron deficiency anemia due to chronic bl ood loss (ICD-10 - D50.0) Check to see that this has resolved now that menses are no longer heavy Jun, YADIRA positive (ICD-10 - R76.8) Await Rheumatology eval Jun, Visual disturbance (ICD-10 - H53.9) Await further NEurology input PLAN OF TREATMENT Treatment Notes Assessment Notes Clinical Notes Iron deficiency anemia due to chronic blood loss Check to see that this has resolved now that menses are no longer heavy YADIRA positive Await Rheumatology e maximiliano Visual disturbance Await further NEurol ogy input Treatment Notes Test Name Order Date IRON (FE) 2021-07-16 Next Appt Details labs today, f/u 6 months Reason: Provider Name:Savanah Kellogg, 2021-12 01:00:00 PM, [address], , [place], [address], Insurance Providers Payer Name Payer Address Payer Phone Insured Name Patient Relati onship to Insured Coverage Start Date Coverage End Date [facility] [address] [address] [facility] [id number] FREEMAN MARTEL
--- OUTSIDE RECORDS SUMMARY | 2021-09-18 06:45 | CCD ---
Author Author [facility] Organization [facility] Address Unknown Phone Unavailable Care Team Providers Care Animal Care Supervisor Name Role Phone Ramila PEDRAZA MD Unavailable Unavailable PEDRAZA, L TEETEE ARGUELLO Unavailable Unavailable PEDRAZA, L TEETEE ARGUELLO Unavailable Unavailable PEDRAZA, L TEETEE ARGUELLO Unavailable Unavailable PEDRAZA, L TEETEE ARGUELLO Unavailable Unavailable PEDRAZA, L TEETEE ARGUELLO Unavailable Unavailable PEDRAZA, L TEETEE ARGUELLO Unavailable Unavailable PEDRAZA, L TEETEE ARGUELLO Unavailable Unavailable PEDRAZA, L TEETEE ARGUELLO Unavailable Unavailable PEDRAZA, L TEETEE ARGUELLO Unavailable Unavailable PEDRAZA, L TEETEE ARGUELLO Unavailable Unavailable PEDRAZA, L TEETEE ARGUELLO Unavailable Unavailable PEDRAZA, L TEETEE ARGUELLO Unavailable Unavailable PEDRAZA, L TEETEE ARGUELLO Unavailable Unavailable PEDRAZA, L TEETEE ARGUELLO Unavailable Unavailable PEDRAZA, L TEETEE ARGUELLO Unavailable Unavailable PEDRAZA, L TEETEE ARGUELLO Unavailable Unavailable PEDRAZA, L TEETEE ARGUELLO Unavailable Unavailable PEDRAZA, L TEETEE ARGUELLO Unavailable Unavailable PEDRAZA, L TEETEE ARGUELLO Unavailable Unavailable PEDRAZA, L TEETEE ARGUELLO Unavailable Unavailable PEDRAZA, L TEETEE ARGUELLO Unavailable Unavailable PEDRAZA, L TEETEE ARGUELLO Unavailable Unavailable PEDRAZA, L TEETEE ARGUELLO Unavailable Unavailable PEDRAZA, L TEETEE ARGUELLO Unavailable Unavailable PEDRAZA, L TEETEE ARGUELLO Unavailable Unavailable PEDRAZA, L TEETEE ARGUELLO Unavailable Unavailable PEDRAZA, L TEETEE ARGUELLO Unavailable Unavailable PEDRAZA, L TEETEE ARGUELLO Unavailable Unavailable PEDRAZA, L TEETEE ARGUELLO Unavailable Unavailable PEDRAZA, L TEETEE ARGUELLO Unavailable Unavailable PEDRAZA, L TEETEE ARGUELLO Unavailable Unavailable Ramila PEDRAZA MD Unavailable Unavailable Ramila PEDRAZA MD Unavailable Unavailable Ramila PEDRAZA MD Unavailable Unavailable Ramila PEDRAZA MD Unavailable Unavailable Ramila PEDRAZA MD Unavailable Unavailable Ramila PEDRAZA MD Unavailable Unavailable Ramila PEDRAZA MD Unavailable Unavailable Ramila PEDRAZA MD Unavailable Unavailable Ramila PEDRAZA MD Unavailable Unavailable Ramila PEDRAZA MD Unavailable Unavailable Ramila PEDRAZA MD Unavailable Unavailable PEDRAZARamila MD Unavailable Unavailable PEDRAZARamila MD Unavailable Unavailable VERO, BRENT MD Unavailable Unavailable VERO, BRENT MD Unavailable Unavailable VERO, BRENT MD Unavailable Unavailable VERO, BRENT MD Unavailable Unavailable VERO, BRENT MD Unavailable Unavailable VERO, BRENT MD Unavailable Unavailable VERO, BRENT MD Unavailable Unavailable VERO, BRENT MD Unavailable Unavailable VERO, BRENT MD Unavailable Unavailable VERO, BRENT MD Unavailable Unavailable VERO, BRENT MD Unavailable Unavailable VERO, BRENT MD Unavailable Unavailable VERO, BRENT MD Unavailable Unavailable VERO, BRENT MD Unavailable Unavailable VERO, BRENT MD Unavailable Unavailable VERO, BRENT MD Unavailable Unavailable VERO, BRENT MD Unavailable Unavailable VERO, BRENT MD Unavailable Unavailable VERO, BRENT MD Unavailable Unavailable VERO, BRENT MD Unavailable Unavailable VERO, BRENT MD Unavailable Unavailable VERO, BRENT MD Unavailable Unavailable EVRO, BRENT MD Unavailable Unavailable VERO, BRENT MD Unavailable Unavailable VERO, BRENT MD Unavailable Unavailable VERO, BRENT MD Unavailable Unavailable VERO, BRENT MD Unavailable Unavailable VERO, BRENT MD Unavailable Unavailable VERO, BRENT MD Unavailable Unavailable VERO, BRENT MD Unavailable Unavailable VERO, BRENT MD Unavailable Unavailable VERO, BRENT MD Unavailable Unavailable VERO, BRENT MD Unavailable Unavailable VERO, BRENT MD Unavailable Unavailable VERO, BRENT MD Unavailable Unavailable VERO, BRENT MD Unavailable Unavailable VERO, BRENT MD Unavailable Unavailable VERO, BRENT MD Unavailable Unavailable VERO, BRENT MD Unavailable Unavailable VERO, BRENT MD Unavailable Unavailable VERO, BRENT MD Unavailable Unavailable VERO, BRENT MD Unavailable Unavailable VERO, BRENT MD Unavailable Unavailable Re-disclosure Warning The records that you are about to access may contain information from federally-assisted alcohol or drug abuse programs. If such information is present, then the following federally mandated warning applies: This information has been disclosed to you from records protected by federal confidentiality rules (42 CFR part 2). The federal rules prohibit you from making any further disclosure of this information unless further disclosure is expressly permitted by the written consent of the person to whom it pertains or as otherwise permitted by 42 CFR part 2. A general authorization for the release of medical or other information is NOT sufficient for this purpose. The Federal rules restrict any use of the information to criminally investigate or prosecute any alcohol or drug abuse patient.The records that you are about to access may contain highly sensitive health information, the redisclosure of which is protected by Article 27-F of the [facility] Public Health law. If you continue you may have access to information: Regarding HIV / AIDS; Provided by facilities licensed or operated by the [facility] Office of Mental Health; or Provided by the [facility] Office for People With Developmental Disabilities. If such information is present, then the following [facility] mandated warning applies: This information has been disclosed to you from confidential records which are protected by state law. State law prohibits you from making any further disclosure of this information without the specific written consent of the person to whom it pertains, or as otherwise permitted by law. Any unauthorized further disclosure in violation of state law may result in a fine or prison sentence or both. A general authorization for the release of medical or other information is NOT sufficient authorization for further disc losure. Family History Family Member Name Family Member Gender Family Member Status Date o f Status Description Data Source(s) Unknown Unknown Problem MEDENT (Robin claire CLEANING TECHNICIAN) Encounters Encounter Providers Location Date Indications Data Source(s ) Outpatient Attender: BRENT PHAM MD Main [facility] 08/27/2021 10:30:00 AM EDT MEDENT ([facility] Outpatient Attender: TEETEE Kelly Woman coat padder 03:00:00 PM EDT MEDENT ([facility] CLEANING TECHNICIAN) [place] [address] [facility] [address] 07/16/2021 12:00:00 AM EDT eCW1 ([facility]) Outpatient Attender: BRENT PHAM MD Main [facility] 07/03/2021 01:30:00 PM EDT MEDENT ([facility]) [place] [address] [facility] [address] 05/01/2021 12:00:00 AM EDT eCW1 ([facility]) [place] [address] [facility] [address] 04/03/2021 12:00:00 AM EDT eCW1 ([facility]) [place] [address] [facility] [facility] [address] 04/01/2021 12:00:00 AM EDT eCW1 ([facility]) [place] [address] [facility] [address] 03/23/2021 12:00:00 AM EDT eCW1 ([facility]) [place] [address] [facility] [address] 09/26/2020 12:00:00 AM EDT eCW1 ([facility]) Office Visit Attender: TEETEE Kelly Woman coat padder 12/2019 08:45:00 AM EDT MEDENT ([facility] CLEANING TECHNICIAN) Outpatient Attender: TEETEE Kelly Woman coat padder 12/2019 11:00:00 AM EDT MEDENT ([employer] CLEANING TECHNICIAN) Immunizations Vaccine Date Status Description Data Source(s) COVID-19 VACC, MRNA(PFIZER)/PF 08/27/2021 12:00:00 AM EDT completed [facility] COVID-19 VACCINE Pfizer 08/27/2021 12:00:00 AM EDT completed [facility] Vaccine Series Complete: YESThis Data wa s Submitted to [facility] Via [facility]. COVID-19 dose #2 given elsewhere Unspecified 01/10/2021 08:1 4:00 AM EST completed eCW1 ([facility]) COVID-19 dose #2 given elsewhere Unspecified 01/10/2021 08:1 4:00 AM EST completed eCW1 ([facility]) COVID-19 dose #2 given elsewhere Unspecified 01/10/2021 08:1 4:00 AM EST completed eCW1 ([facility]) COVID-19 VACCINE Pfizer 01/10/2021 12:00:00 AM EST completed [facility] Vaccine Series Complete: YESThis Data wa s Submitted to [facility] Via [facility]. COVID-19 dose #1 given elsewhere Unspecified 12/20/2020 08:1 4:00 AM EST completed eCW1 ([facility]) COVID-19 dose #1 given elsewhere Unspecified 12/20/2020 08:1 4:00 AM EST completed eCW1 ([facility]) COVID-19 dose #1 given elsewhere Unspecified 12/20/2020 08:1 4:00 AM EST completed eCW1 ([facility]) COVID-19 VACCINE Pfizer 12/20/2020 12:00:00 AM EST completed [facility] Vaccine Series Complete: NOThis Data was Submitted to [facility]. Medications Medication Brand Name Start Date Product Form Dose Route Admi nistrative Instructions Pharmacy Instructions Status Indications Reaction Description Data Source(s) Sutab Sutab 07/07/2021 12:00:00 AM EDT active MEDENT ([facility], ) Bisacodyl 5 MG Delayed Release Oral Tablet [Dulcolax] Dulcol ax 07/07/2021 12:00:00 AM EDT ORAL active M EDENT ([facility], ) Insurance Providers Payer name Policy type / Coverage type Policy ID Covered republican ID Covered republican's relationship to vigil Policy Vigil Plan Information [facility] [id number] SP [id number] [facility] [id number] SP [id number] [facility] O [id number] S [id number] [facility] Commercial [id number] Self [id number] [facility] [id number] SP [id number] [employer] P[employer] O [id number] S [id number] [employer] [id number] SP [id number] Problems, Conditions, and Diagnoses Code Display Name Description Problem Type Effective Dates Data Source(s) Z12.11 [id number] Colon cancer screening Problem 04/03/2021 12 :00:00 AM EDT eCW1 ([facility]) R76.8 [id number] YADIRA positive Problem 04/03/2021 12:00:00 AM EDT eCW1 ([facility]) H53.9 [id number] Visual disturbance Problem 04/03/2021 12:00: 00 AM EDT eCW1 ([facility]) D50.0 [id number] Iron deficiency anemia due to chronic blo od loss Problem 03/26/2021 12:00:00 AM EDT eCW1 ([facility]) Surgeries/Procedures Procedure Description Date Indications Data Source(s) OFFICE OUTPATIENT VISIT 25 MINUTES 08/27/2021 12:00:00 AM EDT MEDENT ([facility]) PERIODIC PREVENTIVE MED EST PATIENT 40-64YRS 12:00:00 AM EDT MEDENT ([facility] CLEANING TECHNICIAN) Magnetic Resonance Angiogtaphy Head W/O Contrast Material(S) 07/08/2021 12:00:00 AM EDT MEDENT ([facility]) Magnetic Resonance Angiogtaphy Head W/O Contrast Material(S) 07/08/2021 12:00:00 AM EDT MEDENT ([facility]) Magnetic Resonance Angiogtaphy Head W/O Contrast Material(S) 07/08/2021 12:00:00 AM EDT MEDENT ([facility]) Magnetic Resonance Angiography Neck W/O Contrast Materials 07/08/2021 12:00:00 AM EDT MEDENT ([facility]) Magnetic Resonance Angiography Neck W/O Contrast Materials 07/08/2021 12:00:00 AM EDT MEDENT ([facility]) Magnetic Resonance Angiography Neck W/O Contrast Materials 07/08/2021 12:00:00 AM EDT MEDENT ([facility]) OFFICE OUTPATIENT NEW 45 MINUTES 07/03/2021 12:00:00 A M EDT MEDENT ([facility]) Hysteroscopy, With Endometrial Ablation (Any Method) 08/14/2020 12:00:00 AM EDT MEDENT ([facility] CLEANING TECHNICIAN) Mammogram 08/12/2020 12:00:00 AM EDT M EDENT ([facility]in Woman CLEANING TECHNICIAN) Results ID Date Data Source [id number] 08/10/2021 12:00:00 PM EDT MEDDENISHA (Robin Alvarez CLEANING TECHNICIAN) Name Value Range Interpretation Code Description Data Denise rce(s) Supporting Document(s) TP Reflex HPV ASCUS Laboratory test result MEDENT (Robin Alvarez CLEANING TECHNICIAN) SPECIMEN PART------ A. Cervical, Endocervical, ThinPrep Pap (Kayaking Instructor) CYTOLOGY HX-------- Date of Last Menstrual Period: 07/17/21 Other Information:Previous Normal Pap: 07/30/20 FINAL DIAGNOSIS---- INTERPRETATION: Negative for Intraepithelial Lesion or Malignancy. SPECIMEN ADEQUACY:Satisfactory for evaluation. Endocervical/transformation zone component present. TP Reflex HPV ASCUS Laboratory test result MEDENT (Robin Alvarez CLEANING TECHNICIAN) ID Date Data Source UA URINALYSIS 07/16/2021 12:00:00 AM EDT eCW1 ([facility]) Name Value Range Interpretation Code Description Data Denise rce(s) Supporting Document(s) UA URINALYSIS eCW1 ([facility]) ID Date Data Source TOTAL IRON BINDING CAPACIT 07/16/2021 12:00:00 AM EDT eCW1 ( [facility]) Name Value Range Interpretation Code Description Data Denise rce(s) Supporting Document(s) 353 250-450 TOTAL IRON BINDING CAPACI TY eCW1 ([facility]) 86 50-170 IRON (FE) eCW1 ([facility]) 24.4 13.2-45.0 PERCENT SATURATION eCW1 ([facility]) ID Date Data Source FERRITIN 07/16/2021 12:00:00 AM EDT eCW1 ([facility]) Name Value Range Interpretation Code Description Data Denise rce(s) Supporting Document(s) 80 4-252 FERRITIN eCW1 ([facility]) ID Date Data Source CBC with Differential 07/16/2021 12:00:00 AM EDT eCW1 ([facility]) Name Value Range Interpretation Code Description Data Denise rce(s) Supporting Document(s) 5.3 4.0-10.0 WHITE BLOOD COUNT eCW1 ([facility]) 4.37 4.00-5.40 RED BLOOD COUNT eCW1 ([facility]) 13.5 12.0-15.5 HEMOGLOBIN eCW1 ([facility]) 41.3 36.0-47.0 HEMATOCRIT eCW1 ([facility]) 94.5 80.0-96.0 MEAN CORPUSCULAR VOLUME e CW1 ([facility]) 30.9 27.0-33.0 MEAN CORPUSCULAR HEMOGLOB IN eCW1 ([facility]) 32.7 32.0-36.5 MEAN CORPUSCULAR HGB CONC eCW1 ([facility]) 12.3 11.5-14.5 RED CELL DISTRIBUTION WID TH eCW1 ([facility]) 218 150-450 PLATELET COUNT, AUTOMATED eCW1 ([facility]) 63.5 36.0-66.0 NEUTROPHILS % eCW1 ([facility]) 24.7 24.0-44.0 LYMPH % eCW1 ([facility]) 9.1 2.0-8.0 MONO % eCW1 ([facility]) 1.9 0.0-3.0 EOS % eCW1 ([facility]) 0.6 0.0-1.0 BASO % eCW1 ([facility]) 1.3 1.5-5.0 LYMPH # eCW1 ([facility]) 3.4 1.5-8.5 NEUTROPHILS # eCW1 ([facility]) 0.5 0.0-0.8 MONO # eCW1 ([facility]) 0.1 0.0-0.5 EOS # eCW1 ([facility]) 0.0 0.0-0.2 BASO # eCW1 ([facility]) ID Date Data Source [id number] 08/09/2020 11:00:00 AM EDT [facility] Name Value Range Interpretation Code Description Data Denise rce(s) Supporting Document(s) SARS coronavirus 2 RNA [facility] This lab was ordered by [facility] and reported by [facility]. ID Date Data Source [id number] 07/30/2020 12:00:00 PM EDT MEDENT (Robin Alvarez CLEANING TECHNICIAN) Name Value Range Interpretation Code Description Data Denise rce(s) Supporting Document(s) TP Reflex HPV ASCUS Laboratory test result MEDENT (Robin Alvarez CLEANING TECHNICIAN) TP Reflex HPV ASCUS Laboratory test result MEDENT (Robin Alvarez CLEANING TECHNICIAN) SPECIMEN PART------ A. Cervical, Endocervical, ThinPrep Pap (Kayaking Instructor) CYTOLOGY HX-------- Date of Last Menstrual Period: 07/22/20 Other Information:Previous Normal Pap: 06/12/19 Oral Contraceptives FINAL DIAGNOSIS---- INTERPRETATION: Negative for Intraepithelial Lesion or Malignancy. SPECIMEN ADEQUACY:Satisfactory for evaluation. Endocervical/transformation zone component present. Procedure Social History Code Duration Value Status Description Data Source(s ) Smoking 08/10/2021 12:00:00 AM EDT Patient has never smoked co mpleted Patient has never smoked MEDENT (Robin Alvarez CLEANING TECHNICIAN) Smoking 07/16/2021 12:00:00 AM EDT Never Smoker completed Never S davon eCW1 ([facility]) Smoking 04/03/2021 12:00:00 AM EDT Never Smoker completed Never S moker eCW1 ([facility]) Smoking 04/03/2021 12:00:00 AM EDT Never Smoker completed Never S moker eCW1 ([facility]) Vital Signs ID Date Data Source UNK Name Value Range Interpretation Code Description Data Source(s) Systolic blood pressure 104 mm[Hg] 104 mm[Hg] M EDENT ([facility] [employer] CLEANING TECHNICIAN) Diastolic blood pressure 54 mm[Hg] 54 mm[Hg] MEDENT (Kelly Woman CLEANING TECHNICIAN) Body height 65.75 [in_i] 65.75 [in_i] MEDENT (W isyessica Woman CLEANING TECHNICIAN) 5'5.75" Body weight 145.00 [lb_av] 145.00 [lb_av] MEDEN T ([facility] [employer] CLEANING TECHNICIAN) Body mass index (BMI) [Ratio] 23.6 kg/m2 23.6 k g/m2 MEDENT (Kelly [employer] CLEANING TECHNICIAN) Body surface area Derived from formula 1.74 m2 1.74 m2 MEDENT (Kelly Woman CLEANING TECHNICIAN) Diastolic blood pressure 70 mm[Hg] 70 mm[Hg] eCW1 ([facility]) Body weight 147.8 [lb_av] 147.8 [lb_av] eCW1 ([facility]) Body height 66.5 [in_i] 66.5 [in_i] eCW1 ([facility]) Body mass index (BMI) [Ratio] 23.50 kg/m2 23.50 kg/m2 eCW1 ([facility]) Heart rate 121 /min 121 /min eCW1 ([facility]) Respiratory rate 18 /min 18 /min eCW1 ([facility]) Body temperature 98 [degF] 98 [degF] eCW1 ([facility]) Systolic blood pressure 120 mm[Hg] 120 mm[Hg] e CW1 ([facility]) Systolic blood pressure 102 mm[Hg] 102 mm[Hg] M EDENT ([facility], ) [place] body weight 130 [lb_av] 130 [lb_av] MEDEN T [facility] Body weight 65.772 kg 65.772 kg MEDENT ([facility]) Diastolic blood pressure 72 mm[Hg] 72 mm[Hg] MEDENT ([facility]) Body height 66 [in_i] 66 [in_i] MEDENT ([facility]) 5'6" Body weight 145.00 [lb_av] 145.00 [lb_av] MEDEN T ([facility]) Body mass index (BMI) [Ratio] 23.4 kg/m2 23.4 k g/m2 MEDENT ([facility]) Body surface area Derived from formula 1.74 m2 1.[address] [facility] ([facility]) Body weight 148.4 [lb_av] 148.4 [lb_av] W1 ([facility]) Body height 66.5 [in_i] 66.5 [in_i] eCW1 ([facility]) Body mass index (BMI) [Ratio] 23.59 kg/m2 23.59 kg/m2 W1 ([facility]) Heart rate 102 /min 102 /min W1 ([facility]) Respiratory rate 18 /min 18 /min W1 ([facility]) Body temperature 98.4 [degF] 98.4 [degF] eCW1 ( [facility]) Systolic blood pressure 120 mm[Hg] 120 mm[Hg] e CW1 ([facility]) Diastolic blood pressure 70 mm[Hg] 70 mm[Hg] eCW1 ([facility]) Systolic blood pressure 112 mm[Hg] 112 mm[Hg] M EDENT (Kelly Woman CLEANING TECHNICIAN) Diastolic blood pressure 62 mm[Hg] 62 mm[Hg] MEDENT ([facility] CLEANING TECHNICIAN) Body height 66 [in_i] 66 [in_i] MEDENT (Kelly Woman CLEANING TECHNICIAN) 5'6" Body weight 146.00 [lb_av] 146.00 [lb_av] MEDEN T ([facility] CLEANING TECHNICIAN) Body mass index (BMI) [Ratio] 23.6 kg/m2 23.6 k g/m2 MEDENT (Kelly [facility] CLEANING TECHNICIAN) Body surface area Derived from formula 1.75 m2 1.75 m2 MEDENT ([facility] [employer] CLEANING TECHNICIAN) Body surface area 1.75 m2 1.75 m2 MEDENT (Kelly Woman CLEANING TECHNICIAN) Systolic blood pressure 110 mm[Hg] 110 mm[Hg] M EDENT (Kelly Woman CLEANING TECHNICIAN) Diastolic blood pressure 66 mm[Hg] 66 mm[Hg] MEDENT (Kelly Woman CLEANING TECHNICIAN)
[2021-09-18] MEDS ORDERED: SIMETHICONE 40MG/0.6ML DROPS 30ML As Ordered ONE (06:58)
--- NOTE | 2021-09-18 08:15 | ROOR ---
Patient Name: Patricia Martel Procedure Date: 09/18/2021 7:35 AM Date of : 1970 Age: 50 Room: [facility] Gender: Female Note Status: Finalized Procedure: Colonoscopy Indications: Screening for colorectal malignant neoplasm Providers: Elan Doty MD Referring MD: Romie Kellogg MD Requesting Provider: Medicines: Monitored Anesthesia Care Complications: No immediate complications. Procedure: Pre-Anesthesia Assessment: - Prior to the procedure, a History and Physical was performed, and patient medications and allergies were reviewed. The patient is competent. The risks and benefits of the procedure and the sedation options and risks were discussed with the patient. All questions were answered and informed consent was obtained. Patient identification and proposed procedure were verified by the physician, the nurse and the anesthesiologist in the procedure room. Mental Status Examination: alert and oriented. Airway Examination: normal oropharyngeal airway and neck mobility. Respiratory Examination: clear to auscultation. CV Examination: normal. Prophylactic Antibiotics: The patient does not require prophylactic antibiotics. Prior Anticoagulants: The patient has taken no previous anticoagulant or antiplatelet agents. ASA Grade Assessment: II - A patient with mild systemic disease. After reviewing the risks and benefits, the patient was deemed in satisfactory condition to undergo the procedure. The anesthesia plan was to use monitored anesthesia care (MAC). Immediately prior to administration of medications, the patient was re-assessed for adequacy to receive sedatives. The heart rate, respiratory rate, oxygen saturations, blood pressure, adequacy of pulmonary ventilation, and response to care were monitored throughout the procedure. The physical status of the patient was re-assessed after the procedure. The Colonoscope was introduced through the anus and advanced to the terminal ileum, with identification of the appendiceal orifice and IC valve. The colonoscopy was performed without difficulty. The patient tolerated the procedure well. The quality of the bowel preparation was good. The terminal ileum, ileocecal valve, appendiceal orifice, and rectum were photographed. Scope insertion time was 2 minutes. Scope withdrawal time was 9 minutes. The total duration of the procedure was 12 minutes. Findings: The perianal and digital rectal examinations were normal. The terminal ileum appeared normal. Three sessile polyps were found in the recto-sigmoid colon, ascending colon and cecum. The polyps were 3 to 5 mm in size. These polyps were removed with a jumbo cold forceps. Resection and retrieval were complete. Verification of patient identification for the specimen was done by the physician and nurse using the patient's name, date and medical record number. Estimated blood loss was minimal. Non-bleeding external and internal hemorrhoids were found during retroflexion. The hemorrhoids were medium-sized. Impression: - The examined portion of the ileum was normal. - Three 3 to 5 mm polyps at the recto-sigmoid colon, in the ascending colon and in the cecum, removed with a jumbo cold forceps. Resected and retrieved. - Non-bleeding external and internal hemorrhoids. Recommendation: - Patient has a contact number available for emergencies. The signs and symptoms of potential delayed complications were discussed with the patient. Return to normal activities tomorrow. Written discharge instructions were provided to the patient. - High fiber diet. - Continue present medications. - Await pathology results. - Repeat colonoscopy in 5-10 years for surveillance based on pathology results. - Telephone GI clinic for pathology results in 2 weeks. - Return to GI clinic if persistent symptoms or new symptoms. - Return to primary care physician. Procedure Code(s): --- Professional --- 85188, Colonoscopy, flexible; with biopsy, single or multiple Diagnosis Code(s): --- Professional --- Z12.11, Encounter for screening for malignant neoplasm of colon K64.8, Other hemorrhoids K63.5, Polyp of colon CPT copyright 2019 [employer]. All rights reserved. The codes documented in this report are preliminary and upon soft water mechanic review may be revised to meet current compliance requirements. Elan Doty MD Elan Doty MD 09/18/2021 8:15:23 AM Electronically signed by Elan Doty MD Number of Addenda: 0 Note Initiated On: 09/18/2021 7:35 AM Estimated Blood Loss: Estimated blood loss was minimal.
[2021-09-18 08:23] VITALS: BP 95/64
== END 2021-09-18 08:35 | disposition home or self-care (01) ==
LOC: M OPP 06:42
PROVIDERS: ATTEND Internal Medicine Gastroenterology
DX: Z12.11 Encounter for screening for malignant neoplasm of colon (principal); D12.6 Benign neoplasm of colon, unspecified; K64.8 Other hemorrhoids

== ENCOUNTER → 2022-01-26 | Outpatient (CLI) | payer OTHER ==
[~2022-01-26] MED LIST changes: -LIDOCAINE 2% 100MG/5ML SDV (FOR ANES.) As Ordered ONE; -NS 1,000 ML IV ONE; -propofoL 200 MG/20 ML VIAL As Ordered ONE
== END ==
LOC: M PLAIMG 09:38
PROVIDERS: ATTEND Internal Medicine Rheumatology
DX: R76.8 Other specified abnormal immunological findings in serum (principal)

== ENCOUNTER → 2022-01-26 | Outpatient (REF) | payer OTHER ==
[2022-01-26 12:48] LABS: BASO % 0.9 % (0.0-1.0); EOS # 0.1 10^3/uL (0.0-0.5); EOS % 1.1 % (0.0-3.0); HEMOGLOBIN 14.2 g/dl (12.0-15.5); LYMPH # 1.1 10^3/uL (1.5-5.0); LYMPH % 23.8 % (24.0-44.0); MEAN CORPUSCULAR HEMOGLOBIN 29.8 pg (27.0-33.0); MEAN CORPUSCULAR HGB CONC 32.3 g/dl (32.0-36.5); MEAN CORPUSCULAR VOLUME 92.4 fl (80.0-96.0); MONO # 0.3 10^3/uL (0.0-0.8); MONO % 6.3 % (2.0-8.0); NEUTROPHILS % 67.7 % (36.0-66.0); PLATELET COUNT, AUTOMATED 210 10^3/uL (150-450); RED BLOOD COUNT 4.76 10^6/uL (4.00-5.40); WHITE BLOOD COUNT 4.4 10^3/uL (4.0-10.0)
[2022-01-26 12:52] LABS: AMORPHOUS SEDIMENT MODERATE (NEGATIVE); APPEARANCE, URINE TURBID (CLEAR); BACTERIA, URINE AUTO NEGATIVE (NEGATIVE); BILIRUBIN, URINE AUTO NEGATIVE (NEGATIVE); BLOOD, URINE BLOOD 1+ (NEGATIVE); COLOR, URINE STRAW (YELLOW); GLUCOSE, URINE (UA) AUTO NEGATIVE (NEGATIVE); KETONE, URINE AUTO NEGATIVE (NEGATIVE); LEUKOCYTE ESTERASE, URINE AUTO NEGATIVE (NEGATIVE); NITRITE, URINE AUTO NEGATIVE (NEGATIVE); PROTEIN, URINE AUTO NEGATIVE (NEGATIVE); RBC, URINE AUTO 0 /HPF (0-3); SPECIFIC GRAVITY URINE AUTO 1.023 (1.002-1.035); SQUAMOUS EPITHELIAL CELL UR AU 0 /HPF (0-6); UROBILINOGEN, URINE AUTO 0.2 mg/dL (0.0-2.0); WBC, URINE AUTO 0 /HPF (0-3)
[2022-01-26 13:21] LABS: ERYTHROCYTE SEDIMENTATION RATE 5 mm/hr (0-30)
[2022-01-26 13:38] LABS: TOTAL PROTEIN,RANDOM URINE 14.6 MG/DL (0.0-12.0)
[2022-01-26 13:55] LABS: ALBUMIN 4.7 GM/DL (3.2-5.2); ALT/SGPT 26 U/L (12-78); BILIRUBIN,TOTAL 0.5 MG/DL (0.2-1.0); BLOOD UREA NITROGEN 18 MG/DL (7-18); CALCIUM LEVEL 9.8 MG/DL (8.5-10.1); CARBON DIOXIDE LEVEL 31 MEQ/L (21-32); CHLORIDE LEVEL 105 MEQ/L (98-107); COMPLEMENT C3 119 MG/DL (90-180); COMPLEMENT C4 22 MG/DL (10-40); CREATININE FOR GFR 0.82 MG/DL (0.55-1.30); GLOMERULAR FILTRATION RATE > 60.0 (>51); GLUCOSE, FASTING 96 MG/DL (70-100); POTASSIUM SERUM 3.8 MEQ/L (3.5-5.1); SODIUM LEVEL 141 MEQ/L (136-145); TOTAL PROTEIN 8.3 GM/DL (6.4-8.2)
== END ==
LOC: M SFHCRHEU 08:50
PROVIDERS: ATTEND Internal Medicine Rheumatology
DX: R76.8 Other specified abnormal immunological findings in serum (principal); M25.50 Pain in unspecified joint

== ENCOUNTER → 2022-09-30 | Outpatient (CLI) | payer OTHER ==
[2022-09-30 10:34] LABS: APPEARANCE, URINE MANUAL CLEAR (CLEAR); COLOR, URINE MANUAL YELLOW (YELLOW)
[2022-09-30 10:36] LABS: GLUCOSE, URINE (UA) MANUAL NEGATIVE (NEGATIVE); PROTEIN, URINE MANUAL NEGATIVE (NEGATIVE)
[2022-09-30 10:37] LABS: BILIRUBIN, URINE MANUAL NEGATIVE (NEGATIVE); BLOOD URINE MANUAL NEGATIVE (NEGATIVE); KETONE, URINE MANUAL 1+ mg/dL (NEGATIVE); LEUKOCYTE ESTERASE, URINE MAN NEGATIVE (NEGATIVE); NITRITE, URINE MANUAL NEGATIVE (NEGATIVE); UROBILINOGEN, URINE MANUAL NORMAL (NORMAL)
[2022-09-30 10:41] LABS: EOS # 0.1 10^3/uL (0.0-0.5); EOS % 2.2 % (0.0-3.0); HEMATOCRIT 41.5 % (36.0-47.0); HEMOGLOBIN 13.4 g/dl (12.0-15.5); LYMPH # 1.1 10^3/uL (1.5-5.0); LYMPH % 27.7 % (24.0-44.0); MEAN CORPUSCULAR HEMOGLOBIN 30.9 pg (27.0-33.0); MEAN CORPUSCULAR HGB CONC 32.3 g/dl (32.0-36.5); MEAN CORPUSCULAR VOLUME 95.6 fl (80.0-96.0); MONO # 0.4 10^3/uL (0.0-0.8); MONO % 9.2 % (2.0-8.0); NEUTROPHILS # 2.5 10^3/uL (1.5-8.5); NEUTROPHILS % 59.7 % (36.0-66.0); PLATELET COUNT, AUTOMATED 199 10^3/uL (150-450); RED BLOOD COUNT 4.34 10^6/uL (4.00-5.40); WHITE BLOOD COUNT 4.1 10^3/uL (4.0-10.0)
[2022-09-30 11:22] LABS: TOTAL PROTEIN,RANDOM URINE 12.4 MG/DL (0.0-12.0)
[2022-09-30 11:23] LABS: ALBUMIN 3.9 GM/DL (3.2-5.2); ALT/SGPT 17 U/L (12-78); BILIRUBIN,TOTAL 0.5 MG/DL (0.2-1.0); BLOOD UREA NITROGEN 16 MG/DL (7-18); CALCIUM LEVEL 9.2 MG/DL (8.5-10.1); CARBON DIOXIDE LEVEL 28 MEQ/L (21-32); CHLORIDE LEVEL 105 MEQ/L (98-107); COMPLEMENT C3 102 MG/DL (90-180); COMPLEMENT C4 24 MG/DL (10-40); CREATININE FOR GFR 0.84 MG/DL (0.55-1.30); ERYTHROCYTE SEDIMENTATION RATE 4 mm/hr (0-30); GLOMERULAR FILTRATION RATE > 60.0 (>51); GLUCOSE, FASTING 102 MG/DL (70-100); POTASSIUM SERUM 3.4 MEQ/L (3.5-5.1); SODIUM LEVEL 138 MEQ/L (136-145); TOTAL PROTEIN 7.1 GM/DL (6.4-8.2)
== END ==
LOC: M WUC 08:12
PROVIDERS: ATTEND Internal Medicine Rheumatology
DX: R76.8 Other specified abnormal immunological findings in serum (principal); M25.50 Pain in unspecified joint; H04.123 Dry eye syndrome of bilateral lacrimal glands

== ENCOUNTER → 2023-03-24 | Outpatient (CLI) | payer OTHER | LOC: M ADAMS 10:04 | PROVIDERS: ATTEND Physician Assistant | DX: M25.511 Pain in right shoulder (principal) ==

== ENCOUNTER → 2023-03-24 | Outpatient (REF) | payer OTHER | LOC: M SFHCADAM 09:32 | PROVIDERS: ATTEND Physician Assistant | DX: Z12.4 Encounter for screening for malignant neoplasm of cervix (principal); R87.618 Other abnormal cytological findings on specimens from cervix uteri ==

== ENCOUNTER → 2023-04-21 | Outpatient (CLI) | payer OTHER | LOC: M RAD 16:31 | PROVIDERS: ATTEND Physician Assistant | DX: N95.0 Postmenopausal bleeding (principal); N85.8 Other specified noninflammatory disorders of uterus ==

== ENCOUNTER → 2023-09-20 | Outpatient (CLI) | payer OTHER ==
[2023-09-20 10:20] LABS: APPEARANCE, URINE CLEAR (CLEAR); BACTERIA, URINE AUTO NEGATIVE (NEGATIVE); BILIRUBIN, URINE AUTO NEGATIVE (NEGATIVE); BLOOD, URINE BLOOD NEGATIVE (NEGATIVE); COLOR, URINE STRAW (YELLOW); GLUCOSE, URINE (UA) AUTO NEGATIVE (NEGATIVE); KETONE, URINE AUTO NEGATIVE (NEGATIVE); LEUKOCYTE ESTERASE, URINE AUTO NEGATIVE (NEGATIVE); NITRITE, URINE AUTO NEGATIVE (NEGATIVE); PROTEIN, URINE AUTO NEGATIVE (NEGATIVE); RBC, URINE AUTO 0 /HPF (0-3); SPECIFIC GRAVITY URINE AUTO 1.005 (1.002-1.035); SQUAMOUS EPITHELIAL CELL UR AU 0 /HPF (0-6); UROBILINOGEN, URINE AUTO 0.2 mg/dL (0.0-2.0); WBC, URINE AUTO 0 /HPF (0-3)
[2023-09-20 10:25] LABS: BASO # 0.1 10^3/uL (0.0-0.2); BASO % 1.1 % (0.0-1.0); EOS # 0.1 10^3/uL (0.0-0.5); EOS % 2.7 % (0.0-3.0); HEMATOCRIT 42.1 % (36.0-47.0); LYMPH # 1.5 10^3/uL (1.5-5.0); LYMPH % 34.3 % (24.0-44.0); MEAN CORPUSCULAR HGB CONC 33.3 g/dl (32.0-36.5); MEAN CORPUSCULAR VOLUME 93.1 fl (80.0-96.0); MONO # 0.4 10^3/uL (0.0-0.8); MONO % 9.2 % (2.0-8.0); NEUTROPHILS # 2.3 10^3/uL (1.5-8.5); NEUTROPHILS % 52.5 % (36.0-66.0); PLATELET COUNT, AUTOMATED 195 10^3/uL (150-450); RED BLOOD COUNT 4.52 10^6/uL (4.00-5.40); WHITE BLOOD COUNT 4.4 10^3/uL (4.0-10.0)
[2023-09-20 10:52] LABS: ALBUMIN 4.3 G/DL (3.2-5.2); ALKALINE PHOSPHATASE 56 U/L (46-116); ALT/SGPT 12 U/L (7.0-40); AST/SGOT 13 U/L (<34); BILIRUBIN,TOTAL 0.5 MG/DL (0.3-1.2); BLOOD UREA NITROGEN 16 MG/DL (9-23); C REACTIVE PROTEIN QUANTITATIV < 0.40 MG/DL (<1.0); CALCIUM LEVEL 9.1 MG/DL (8.5-10.1); CARBON DIOXIDE LEVEL 30 MMOL/L (20-31); CHLORIDE LEVEL 103 MMOL/L (98-107); CREATININE FOR GFR 0.82 MG/DL (0.55-1.30); CREATININE,RANDOM URINE 32.9 MG/DL; GLOMERULAR FILTRATION RATE > 60.0 (>51); GLUCOSE, FASTING 86 MG/DL (60-100); POTASSIUM SERUM 3.7 MMOL/L (3.5-5.1); SODIUM LEVEL 141 MMOL/L (136-145); TOTAL PROTEIN 7.2 G/DL (5.7-8.2)
[2023-09-20 10:54] LABS: COMPLEMENT C3 98.8 MG/DL (90.0-170.0)
[2023-09-20 10:57] LABS: TOTAL PROTEIN,RANDOM URINE < 6.0 MG/DL (0.0-14.0)
[2023-09-20 11:12] LABS: ERYTHROCYTE SEDIMENTATION RATE 4 mm/hr (0-30)
== END ==
LOC: M WUC 08:13
PROVIDERS: ATTEND Internal Medicine Rheumatology
DX: R76.8 Other specified abnormal immunological findings in serum (principal); M25.50 Pain in unspecified joint; H04.123 Dry eye syndrome of bilateral lacrimal glands

== ENCOUNTER → 2024-01-24 | Outpatient (CLI) | payer OTHER ==
[2024-01-24 09:51] LABS: BASO % 1.1 % (0.0-1.0); EOS # 0.2 10^3/uL (0.0-0.5); EOS % 4.2 % (0.0-3.0); HEMATOCRIT 41.7 % (36.0-47.0); HEMOGLOBIN 13.5 g/dl (12.0-15.5); LYMPH # 1.1 10^3/uL (1.5-5.0); LYMPH % 29.6 % (24.0-44.0); MEAN CORPUSCULAR HGB CONC 32.4 g/dl (32.0-36.5); MEAN CORPUSCULAR VOLUME 92.7 fl (80.0-96.0); MONO # 0.4 10^3/uL (0.0-0.8); NEUTROPHILS # 2.1 10^3/uL (1.5-8.5); NEUTROPHILS % 54.6 % (36.0-66.0); PLATELET COUNT, AUTOMATED 200 10^3/uL (150-450); WHITE BLOOD COUNT 3.8 10^3/uL (4.0-10.0)
[2024-01-24 10:01] LABS: ERYTHROCYTE SEDIMENTATION RATE 12 mm/hr (0-30)
[2024-01-24 10:34] LABS: ALBUMIN 4.1 G/DL (3.2-5.2); ALKALINE PHOSPHATASE 58 U/L (46-116); ALT/SGPT 14 U/L (7.0-40); AST/SGOT 11 U/L (<34); BILIRUBIN,TOTAL 0.5 MG/DL (0.3-1.2); BLOOD UREA NITROGEN 16 MG/DL (9-23); CARBON DIOXIDE LEVEL 30 MMOL/L (20-31); CHLORIDE LEVEL 109 MMOL/L (98-107); CREATININE FOR GFR 0.75 MG/DL (0.55-1.30); GLOMERULAR FILTRATION RATE > 60.0 (>51); GLUCOSE, FASTING 82 MG/DL (60-100); POTASSIUM SERUM 3.5 MMOL/L (3.5-5.1); SODIUM LEVEL 141 MMOL/L (136-145)
== END ==
LOC: M WUC 08:04
PROVIDERS: ATTEND Internal Medicine Rheumatology
DX: M25.50 Pain in unspecified joint (principal); R76.8 Other specified abnormal immunological findings in serum; H04.123 Dry eye syndrome of bilateral lacrimal glands

== ENCOUNTER → 2024-06-19 | Outpatient (CLI) | payer OTHER ==
[2024-06-19 12:07] LABS: BASO % 0.9 % (0.0-1.0); EOS # 0.1 10^3/uL (0.0-0.5); EOS % 2.1 % (0.0-3.0); HEMATOCRIT 40.6 % (36.0-47.0); HEMOGLOBIN 13.3 g/dl (12.0-15.5); LYMPH # 1.3 10^3/uL (1.5-5.0); LYMPH % 36.9 % (24.0-44.0); MEAN CORPUSCULAR HEMOGLOBIN 30.5 pg (27.0-33.0); MEAN CORPUSCULAR HGB CONC 32.8 g/dl (32.0-36.5); MEAN CORPUSCULAR VOLUME 93.1 fl (80.0-96.0); MONO # 0.3 10^3/uL (0.0-0.8); MONO % 7.4 % (2.0-8.0); NEUTROPHILS # 1.8 10^3/uL (1.5-8.5); NEUTROPHILS % 52.4 % (36.0-66.0); PLATELET COUNT, AUTOMATED 204 10^3/uL (150-450); RED BLOOD COUNT 4.36 10^6/uL (4.00-5.40); WHITE BLOOD COUNT 3.4 10^3/uL (4.0-10.0)
[2024-06-19 12:20] LABS: ERYTHROCYTE SEDIMENTATION RATE 4 mm/hr (0-30)
[2024-06-19 12:43] LABS: C REACTIVE PROTEIN QUANTITATIV < 0.40 MG/DL (<1.0)
[2024-06-19 12:44] LABS: ALBUMIN 4.2 G/DL (3.2-5.2); ALKALINE PHOSPHATASE 51 U/L (46-116); ALT/SGPT 17 U/L (7.0-40); AST/SGOT 14 U/L (<34); BILIRUBIN,TOTAL 0.8 MG/DL (0.3-1.2); BLOOD UREA NITROGEN 12 MG/DL (9-23); CALCIUM LEVEL 9.2 MG/DL (8.5-10.1); CARBON DIOXIDE LEVEL 28 MMOL/L (20-31); CHLORIDE LEVEL 103 MMOL/L (98-107); CREATININE FOR GFR 0.91 MG/DL (0.55-1.30); GLOMERULAR FILTRATION RATE > 60.0 (>51); GLUCOSE, FASTING 90 MG/DL (60-100); POTASSIUM SERUM 3.6 MMOL/L (3.5-5.1); SODIUM LEVEL 139 MMOL/L (136-145); TOTAL PROTEIN 6.7 G/DL (5.7-8.2)
== END ==
LOC: M WUC 08:59
PROVIDERS: ATTEND Internal Medicine Rheumatology
DX: R76.8 Other specified abnormal immunological findings in serum (principal); M25.50 Pain in unspecified joint; H04.123 Dry eye syndrome of bilateral lacrimal glands

== ENCOUNTER → 2024-06-28 | Outpatient (REF) | payer OTHER | LOC: M SFHCADAM 09:43 | PROVIDERS: ATTEND Physician Assistant | DX: Z13.220 Encounter for screening for lipoid disorders (principal); Z78.0 Asymptomatic menopausal state; M19.90 Unspecified osteoarthritis, unspecified site; M25.541 Pain in joints of right hand; M25.542 Pain in joints of left hand ==

== ENCOUNTER → 2024-06-29 | Outpatient (CLI) | payer OTHER ==
[2024-06-29 13:07] LABS: CHOLESTEROL RISK RATIO 2.43 (<5); HDL CHOLESTEROL 81.2 MG/DL (>40); LDL CHOLESTEROL 104.4 MG/DL (<100); NON-HDL-C 116.8 MG/DL
[2024-06-29 13:09] LABS: THYROID STIMULATING HORMONE 1.501 uIU/ML (0.55-4.78); TOTAL 25(OH) VITAMIN D 25.4 NG/ML (20.0-100.0)
[2024-06-29 13:10] LABS: FREE T4 1.07 NG/DL (0.89-1.76)
[2024-06-29 13:13] LABS: FOLATE 12.6 NG/ML (>5.4)
== END ==
LOC: M WUC 09:06
PROVIDERS: ATTEND Physician Assistant
DX: M19.90 Unspecified osteoarthritis, unspecified site (principal); Z13.220 Encounter for screening for lipoid disorders; Z78.0 Asymptomatic menopausal state; M25.541 Pain in joints of right hand; M25.542 Pain in joints of left hand

== ENCOUNTER → 2024-07-11 | Outpatient (REF) | payer OTHER | LOC: M SFHCRHEU 10:35 | PROVIDERS: ATTEND Internal Medicine Rheumatology | DX: M19.90 Unspecified osteoarthritis, unspecified site (principal) ==

== ENCOUNTER → 2024-08-08 | Outpatient (CLI) | payer OTHER ==
[2024-08-08 09:51] LABS: BASO % 0.7 % (0.0-1.0); EOS # 0.1 10^3/uL (0.0-0.5); EOS % 1.2 % (0.0-3.0); HEMATOCRIT 44.4 % (36.0-47.0); HEMOGLOBIN 14.6 g/dl (12.0-15.5); LYMPH # 1.9 10^3/uL (1.5-5.0); LYMPH % 44.3 % (24.0-44.0); MEAN CORPUSCULAR HEMOGLOBIN 30.7 pg (27.0-33.0); MEAN CORPUSCULAR HGB CONC 32.9 g/dl (32.0-36.5); MEAN CORPUSCULAR VOLUME 93.3 fl (80.0-96.0); MONO # 0.4 10^3/uL (0.0-0.8); NEUTROPHILS # 1.9 10^3/uL (1.5-8.5); NEUTROPHILS % 44.6 % (36.0-66.0); PLATELET COUNT, AUTOMATED 186 10^3/uL (150-450); RED BLOOD COUNT 4.76 10^6/uL (4.00-5.40); WHITE BLOOD COUNT 4.2 10^3/uL (4.0-10.0)
[2024-08-08 09:56] LABS: ERYTHROCYTE SEDIMENTATION RATE 3 mm/hr (0-30)
[2024-08-08 10:19] LABS: C REACTIVE PROTEIN QUANTITATIV < 0.40 MG/DL (<1.0)
[2024-08-08 10:20] LABS: ALBUMIN 4.2 G/DL (3.2-5.2); ALKALINE PHOSPHATASE 46 U/L (46-116); ALT/SGPT 20 U/L (7.0-40); AST/SGOT 10 U/L (<34); BILIRUBIN,TOTAL 0.6 MG/DL (0.3-1.2); BLOOD UREA NITROGEN 15 MG/DL (9-23); CARBON DIOXIDE LEVEL 32 MMOL/L (20-31); CHLORIDE LEVEL 105 MMOL/L (98-107); CREATININE FOR GFR 0.86 MG/DL (0.55-1.30); GLOMERULAR FILTRATION RATE > 60.0 (>51); GLUCOSE, FASTING 92 MG/DL (60-100); POTASSIUM SERUM 3.7 MMOL/L (3.5-5.1); SODIUM LEVEL 143 MMOL/L (136-145)
== END ==
LOC: M WUC 08:15
PROVIDERS: ATTEND Internal Medicine Rheumatology
DX: M19.90 Unspecified osteoarthritis, unspecified site (principal)

== ENCOUNTER → 2024-10-24 | Outpatient (CLI) | payer OTHER ==
[2024-10-24 11:59] LABS: BASO % 0.9 % (0.0-1.0); EOS # 0.1 10^3/uL (0.0-0.5); EOS % 2.4 % (0.0-3.0); HEMATOCRIT 42.6 % (36.0-47.0); LYMPH # 1.2 10^3/uL (1.5-5.0); LYMPH % 35.2 % (24.0-44.0); MEAN CORPUSCULAR HEMOGLOBIN 30.9 pg (27.0-33.0); MEAN CORPUSCULAR HGB CONC 32.9 g/dl (32.0-36.5); MONO # 0.3 10^3/uL (0.0-0.8); NEUTROPHILS # 1.7 10^3/uL (1.5-8.5); NEUTROPHILS % 53.2 % (36.0-66.0); PLATELET COUNT, AUTOMATED 191 10^3/uL (150-450); RED BLOOD COUNT 4.53 10^6/uL (4.00-5.40); WHITE BLOOD COUNT 3.3 10^3/uL (4.0-10.0)
[2024-10-24 12:07] LABS: ERYTHROCYTE SEDIMENTATION RATE 3 mm/hr (0-30)
[2024-10-24 12:25] LABS: C REACTIVE PROTEIN QUANTITATIV < 0.40 MG/DL (<1.0)
[2024-10-24 12:26] LABS: ALBUMIN 4.1 G/DL (3.2-5.2); ALKALINE PHOSPHATASE 50 U/L (35-104); ALT/SGPT 15 U/L (7.0-40); AST/SGOT 10 U/L (<34); BILIRUBIN,TOTAL 0.8 MG/DL (0.3-1.2); BLOOD UREA NITROGEN 15 MG/DL (9-23); CARBON DIOXIDE LEVEL 30 MMOL/L (20-31); CHLORIDE LEVEL 107 MMOL/L (98-107); CREATININE FOR GFR 0.76 MG/DL (0.55-1.30); GLOMERULAR FILTRATION RATE > 60.0 (>51); GLUCOSE, FASTING 93 MG/DL (60-100); POTASSIUM SERUM 4.1 MMOL/L (3.5-5.1); SODIUM LEVEL 143 MMOL/L (136-145)
== END ==
LOC: M WUC 09:58
PROVIDERS: ATTEND Internal Medicine Rheumatology
DX: M19.90 Unspecified osteoarthritis, unspecified site (principal)

== ENCOUNTER → 2024-12-19 | Outpatient (CLI) | payer OTHER ==
[2024-12-19 11:57] LABS: ALBUMIN 4.2 G/DL (3.2-5.2); ALKALINE PHOSPHATASE 50 U/L (35-104); ALT/SGPT 16 U/L (7.0-40); AST/SGOT 14 U/L (<34); BILIRUBIN,TOTAL 0.6 MG/DL (0.3-1.2); BLOOD UREA NITROGEN 17 MG/DL (9-23); C REACTIVE PROTEIN QUANTITATIV < 0.50 MG/DL (<1.0); CARBON DIOXIDE LEVEL 30 MMOL/L (20-31); CHLORIDE LEVEL 107 MMOL/L (98-107); CREATININE FOR GFR 0.75 MG/DL (0.55-1.30); EOS # 0.1 10^3/uL (0.0-0.5); EOS % 2.2 % (0.0-3.0); GLOMERULAR FILTRATION RATE > 60.0 (>51); GLUCOSE, FASTING 99 MG/DL (60-100); HEMATOCRIT 43.4 % (36.0-47.0); HEMOGLOBIN 14.1 g/dl (12.0-15.5); LYMPH # 1.5 10^3/uL (1.5-5.0); LYMPH % 35.5 % (24.0-44.0); MEAN CORPUSCULAR HEMOGLOBIN 30.7 pg (27.0-33.0); MEAN CORPUSCULAR HGB CONC 32.5 g/dl (32.0-36.5); MEAN CORPUSCULAR VOLUME 94.6 fl (80.0-96.0); MONO # 0.4 10^3/uL (0.0-0.8); MONO % 8.4 % (2.0-8.0); NEUTROPHILS # 2.2 10^3/uL (1.5-8.5); NEUTROPHILS % 52.7 % (36.0-66.0); PLATELET COUNT, AUTOMATED 203 10^3/uL (150-450); POTASSIUM SERUM 4.1 MMOL/L (3.5-5.1); RED BLOOD COUNT 4.59 10^6/uL (4.00-5.40); SODIUM LEVEL 146 MMOL/L (136-145); TOTAL PROTEIN 7.4 G/DL (5.7-8.2); WHITE BLOOD COUNT 4.2 10^3/uL (4.0-10.0)
[2024-12-19 12:05] LABS: ERYTHROCYTE SEDIMENTATION RATE 3 mm/hr (0-30)
== END ==
LOC: M WUC 08:03
PROVIDERS: ATTEND Internal Medicine Rheumatology
DX: M19.90 Unspecified osteoarthritis, unspecified site (principal)

== ENCOUNTER → 2025-01-10 | Outpatient (CLI) | payer OTHER ==
[2025-01-10 18:52] LABS: BASO # 0.1 10^3/uL (0.0-0.2); BASO % 1.4 % (0.0-1.0); EOS # 0.1 10^3/uL (0.0-0.5); EOS % 2.6 % (0.0-3.0); HEMATOCRIT 41.6 % (36.0-47.0); HEMOGLOBIN 13.6 g/dl (12.0-15.5); LYMPH # 1.1 10^3/uL (1.5-5.0); LYMPH % 32.5 % (24.0-44.0); MEAN CORPUSCULAR HEMOGLOBIN 31.5 pg (27.0-33.0); MEAN CORPUSCULAR HGB CONC 32.7 g/dl (32.0-36.5); MEAN CORPUSCULAR VOLUME 96.3 fl (80.0-96.0); MONO # 0.3 10^3/uL (0.0-0.8); NEUTROPHILS # 1.9 10^3/uL (1.5-8.5); NEUTROPHILS % 55.2 % (36.0-66.0); PLATELET COUNT, AUTOMATED 197 10^3/uL (150-450); RED BLOOD COUNT 4.32 10^6/uL (4.00-5.40); WHITE BLOOD COUNT 3.5 10^3/uL (4.0-10.0)
[2025-01-10 19:09] LABS: C REACTIVE PROTEIN QUANTITATIV < 0.50 MG/DL (<1.0); ERYTHROCYTE SEDIMENTATION RATE 4 mm/hr (0-30)
[2025-01-10 19:11] LABS: ALBUMIN 4.1 G/DL (3.2-5.2); ALKALINE PHOSPHATASE 52 U/L (35-104); ALT/SGPT 21 U/L (7.0-40); AST/SGOT 15 U/L (<34); BILIRUBIN,TOTAL 0.6 MG/DL (0.3-1.2); BLOOD UREA NITROGEN 16 MG/DL (9-23); CALCIUM LEVEL 9.4 MG/DL (8.5-10.1); CARBON DIOXIDE LEVEL 29 MMOL/L (20-31); CHLORIDE LEVEL 104 MMOL/L (98-107); CREATININE FOR GFR 0.72 MG/DL (0.55-1.30); GLOMERULAR FILTRATION RATE > 60.0 (>51); GLUCOSE, FASTING 86 MG/DL (60-100); SODIUM LEVEL 146 MMOL/L (136-145); TOTAL PROTEIN 6.9 G/DL (5.7-8.2)
== END ==
LOC: M WUC 10:16
PROVIDERS: ATTEND Internal Medicine Rheumatology
DX: M19.90 Unspecified osteoarthritis, unspecified site (principal)

== ENCOUNTER → 2025-02-26 | Outpatient (CLI) | payer OTHER ==
[2025-02-26 12:44] LABS: BASO % 0.9 % (0.0-1.0); EOS # 0.1 10^3/uL (0.0-0.5); EOS % 2.6 % (0.0-3.0); HEMATOCRIT 42.3 % (36.0-47.0); LYMPH # 1.6 10^3/uL (1.5-5.0); LYMPH % 33.7 % (24.0-44.0); MEAN CORPUSCULAR HEMOGLOBIN 31.5 pg (27.0-33.0); MEAN CORPUSCULAR HGB CONC 33.1 g/dl (32.0-36.5); MEAN CORPUSCULAR VOLUME 95.3 fl (80.0-96.0); MONO # 0.4 10^3/uL (0.0-0.8); NEUTROPHILS # 2.5 10^3/uL (1.5-8.5); NEUTROPHILS % 54.4 % (36.0-66.0); PLATELET COUNT, AUTOMATED 198 10^3/uL (150-450); RED BLOOD COUNT 4.44 10^6/uL (4.00-5.40); WHITE BLOOD COUNT 4.6 10^3/uL (4.0-10.0)
[2025-02-26 13:03] LABS: ERYTHROCYTE SEDIMENTATION RATE 6 mm/hr (0-30)
[2025-02-26 13:11] LABS: ALBUMIN 4.3 G/DL (3.2-5.2); ALKALINE PHOSPHATASE 57 U/L (35-104); ALT/SGPT 35 U/L (7.0-40); AST/SGOT 26 U/L (<34); BILIRUBIN,TOTAL 0.6 MG/DL (0.3-1.2); BLOOD UREA NITROGEN 16 MG/DL (9-23); C REACTIVE PROTEIN QUANTITATIV < 0.50 MG/DL (<1.0); CALCIUM LEVEL 9.5 MG/DL (8.5-10.1); CARBON DIOXIDE LEVEL 29 MMOL/L (20-31); CHLORIDE LEVEL 102 MMOL/L (98-107); CREATININE FOR GFR 0.78 MG/DL (0.55-1.30); GLOMERULAR FILTRATION RATE > 60.0 (>51); GLUCOSE, FASTING 96 MG/DL (60-100); SODIUM LEVEL 142 MMOL/L (136-145); TOTAL PROTEIN 7.3 G/DL (5.7-8.2)
== END ==
LOC: M WUC 08:03
PROVIDERS: ATTEND Internal Medicine Rheumatology
DX: M19.90 Unspecified osteoarthritis, unspecified site (principal)

== ENCOUNTER → 2025-08-02 | Outpatient (CLI) | payer OTHER ==
[2025-08-02 12:42] LABS: C REACTIVE PROTEIN QUANTITATIV < 0.50 MG/DL (<1.0)
[2025-08-02 12:46] LABS: BASO # 0.0 10^3/uL (0.0-0.2); BASO % 0.8 % (0.0-1.0); EOS # 0.1 10^3/uL (0.0-0.5); EOS % 1.8 % (0.0-3.0); LYMPH # 1.2 10^3/uL (1.5-5.0); LYMPH % 31.1 % (24.0-44.0); MONO # 0.4 10^3/uL (0.0-0.8); MONO % 9.2 % (2.0-8.0); NEUTROPHILS # 2.2 10^3/uL (1.5-8.5); NEUTROPHILS % 57.1 % (36.0-66.0); PLATELET COUNT, AUTOMATED 199 10^3/uL (150-450)
[2025-08-02 12:49] LABS: ALT/SGPT 58 U/L (7.0-40); AST/SGOT 36 U/L (<34); CALCIUM LEVEL 9.4 MG/DL (8.5-10.1); CARBON DIOXIDE LEVEL 28 MMOL/L (20-31); CHLORIDE LEVEL 103 MMOL/L (98-107); CREATININE FOR GFR 0.78 MG/DL (0.55-1.30); GLOMERULAR FILTRATION RATE > 90.0 (>51); POTASSIUM SERUM 4.2 MMOL/L (3.5-5.1); SODIUM LEVEL 142 MMOL/L (136-145)
[2025-08-02 13:01] LABS: ERYTHROCYTE SEDIMENTATION RATE 4 mm/hr (0-30)
== END ==
LOC: M WUC 08:11
PROVIDERS: ATTEND Internal Medicine Rheumatology
DX: M19.90 Unspecified osteoarthritis, unspecified site (principal)

== ENCOUNTER → 2025-10-07 | Outpatient (CLI) | payer OTHER ==
[2025-10-07 13:32] LABS: FREE T4 1.23 NG/DL (0.89-1.76)
[2025-10-07 13:35] LABS: VITAMIN B12 LEVEL 491 PG/ML (211-911)
== END ==
LOC: M WUC 08:10
PROVIDERS: ATTEND Physician Assistant
DX: Z00.00 Encounter for general adult medical examination without abnormal findings (principal); R20.0 Anesthesia of skin; G43.009 Migraine without aura, not intractable, without status migrainosus; G89.29 Other chronic pain; M25.511 Pain in right shoulder; M25.512 Pain in left shoulder; M43.6 Torticollis

== ENCOUNTER → 2025-10-07 | Outpatient (CLI) | payer OTHER ==
[2025-10-07 13:26] LABS: BASO # 0.1 10^3/uL (0.0-0.2); BASO % 1.3 % (0.0-1.0); EOS # 0.1 10^3/uL (0.0-0.5); EOS % 2.3 % (0.0-3.0); LYMPH # 1.0 10^3/uL (1.5-5.0); LYMPH % 27.0 % (24.0-44.0); MONO # 0.4 10^3/uL (0.0-0.8); MONO % 10.4 % (2.0-8.0); NEUTROPHILS # 2.3 10^3/uL (1.5-8.5); NEUTROPHILS % 58.7 % (36.0-66.0); PLATELET COUNT, AUTOMATED 192 10^3/uL (150-450)
[2025-10-07 13:32] LABS: ALT/SGPT 32 U/L (7.0-40); AST/SGOT 24 U/L (<34); C REACTIVE PROTEIN QUANTITATIV < 0.50 MG/DL (<1.0); CALCIUM LEVEL 9.0 MG/DL (8.5-10.1); CARBON DIOXIDE LEVEL 29 MMOL/L (20-31); CHLORIDE LEVEL 107 MMOL/L (98-107); CREATININE FOR GFR 0.79 MG/DL (0.55-1.30); GLOMERULAR FILTRATION RATE 88.8 (>51); POTASSIUM SERUM 3.7 MMOL/L (3.5-5.1); SODIUM LEVEL 145 MMOL/L (136-145)
== END ==
LOC: M WUC 08:03
PROVIDERS: ATTEND Internal Medicine Rheumatology
DX: M19.90 Unspecified osteoarthritis, unspecified site (principal)